=== PATIENT | male | born 1965 | race Caucasian/White ===

== ENCOUNTER 2023-08-13 19:04 | Emergency (ER) | payer MEDICAID, SELFPAY ==
[2023-08-13] VITALS (11 sets, daily range): BP systolic 138–154; BP diastolic 83–95; PULSE 77–85; RESP 16; TEMP 36.7; O2SAT 95–98; BMI 25.8
--- NOTE | 2023-08-13 20:58 | ED.ABDPAIN ---
HPI - Abdominal Pain General Time Seen by Provider: 20:58 Date Seen: 08/13/23 Chief Complaint: Abdominal Pain Stated Complaint: Severe Vomiting-recent kidney pain-weight loss Time Seen by Provider: 08/13/23 20:57 Source: patient Mode of arrival: ambulatory Limitations: no limitations History of Present Illness HPI narrative: 58-year-old male who comes in today with vomiting and epigastric pain. This is been going on for about 6 weeks. Patient has daily vomiting and difficulty eating due to nausea. He called the clinic to schedule an appointment to be seen and they told him he needed to be seen in the emergency department. He denies chest pain or shortness of breath. No blood in the emesis, no blood in the stools. He is not constipated. He does take Flomax for BPH, also history of kidney stones for which he was recently seen. He notes about a 20 lb weight loss during this time mostly because he is not able to eat full meals. He was recently seen at an outside facility for evaluation of flank pain kidney stones, reportedly as CT scan there but does not know the results. Also admits to recent urinary tract infection, says he took antibiotics and feels better. Related Data Home Medications Medication Instructions Recorded Confirmed omeprazole 20 mg capsule,delayed 20 mg PO DAILY 08/13/23 08/13/23 release tamsulosin 0.4 mg capsule 0.4 mg PO DAILY 08/13/23 08/13/23 Allergies Allergy/AdvReac Type Severity Reaction Status Date / Time No Known Drug Allergies Allergy Verified 08/13/23 19:36 PFSH PFS Social History Smoking Status: Unknown if ever smoked Exam Narrative: Exam Narrative: General: Well-developed and well-nourished, no acute distress Head: Atraumatic and normocephalic Eyes: Pupils are equal reactive, extraocular motions intact, conjunctiva clear ENT: External nose and ears are normal, posterior pharynx without erythema or exudate Neck: No midline cervical tenderness, full spontaneous range of motion the neck, trachea midline, no adenopathy Heart: Regular rate and rhythm no murmurs or thrills Lungs: Clear to auscultation bilaterally without wheezes or crackles Abdomen: Soft, epigastric tenderness, nondistended with active bowel sounds Musculoskeletal: No tenderness, deformity, or edema Neurologic: Awake, alert, and oriented x3, no gross focal neurologic deficits, cranial nerves intact as tested Psych: Mood and affect are appropriate Skin: No rashes Const: Vital Signs, click to edit/add: Vital Signs - 24 hr 08/13/23 19:38 08/13/23 22:15 08/13/23 22:30 Temperature 98.1 F Pulse Rate 78 77 Pulse Rate [Pulse Oximeter] 80 Respiratory Rate 16 Blood Pressure Blood Pressure [Ri ght Upper Arm] 154/83 H Pulse Oximetry 98 98 97 Oxygen Delivery Me thod Room Air Room Air 08/13/23 22:32 08/13/23 22:45 08/13/23 23:00 Temperature Pulse Rate 78 85 82 Pulse Rate [Pulse Oximeter] Respiratory Rate Blood Pressure 144/95 H Blood Pressure [Ri ght Upper Arm] Pulse Oximetry 97 96 97 Oxygen Delivery Me thod Room Air Course Course ED Course: Patient seen and examined, prior records are reviewed. Patient seen today for over a month epigastric pain, nausea, vomiting. He reports acidic taste in his mouth. He denies any blood in the vomit and no black or bloody stools. He is on omeprazole which is not been helping his symptoms recently. He denies chest pain or shortness of breath, no exercise intolerance. He does have weight loss which is likely due to poor oral intake but also could be concern for malignancy although he denies night sweats or other constitutional symptoms to suggest malignancy. Labs are ordered along with CT scan chest abdomen pelvis to evaluate for malignancy, obstruction, or other etiology for patient's ongoing nausea vomiting. Distant history of smoking, denies alcohol use. Reevaluation(s) Time of Reevaluation #1: 22:18 Reevaluation #1: Labs ordered and independently interpreted by me with normal urinalysis, normal CBC. Chest CT independently interpreted by me demonstrates distended, fluid-filled esophagus without acute abdominal findings. Will discuss the GI, patient likely needs upper GI scope with esophageal dilation. Will discuss with gastroenterology. Time of Reevaluation #2: 00:22 Reevaluation #2: Care discussed with Dr. Alaniz of Gastroenterology. Clinical call to schedule an appointment in the next couple days. Liquid diet until he gets his follow-up. Vital Signs Vital signs: Initial Vital Signs Temperature 98.1 F 08/13/23 19:38 Temperature Source Temporal Artery Scan 08/13/23 19:38 Pulse Rate 80 08/13/23 19:38 Respiratory Rate 16 08/13/23 19:38 Blood Pressure 154/83 H 08/13/23 19:38 Blood Pressure Mean 106 H 08/13/23 19:38 Blood Pressure Position Sitting 08/13/23 19:38 Pulse Oximetry 98 08/13/23 19:38 Oxygen Delivery Method Room Air 08/13/23 19:38 Vital Signs Temperature 98.1 F 08/13/23 19:38 Pulse Rate 80 08/13/23 19:38 Respiratory Rate 16 08/13/23 19:38 Blood Pressure 154/83 H 08/13/23 19:38 Pulse Oximetry 98 08/13/23 19:38 Oxygen Delivery Method Room Air 08/13/23 19:38 Temperature 98.1 F 08/13/23 19:38 Pulse Rate 82 08/13/23 23:00 Respiratory Rate 16 08/13/23 19:38 Blood Pressure 144/95 H 08/13/23 22:32 Pulse Oximetry 97 08/13/23 23:00 Oxygen Delivery Method Room Air 08/13/23 22:32 Medications Administered Medications: Generic Name Dose Route Start Last Admin Trade Name Freq PRN Reason Stop Dose Admin Famotidine 20 mg 08/13/23 21:35 08/13/23 21:55 Famotidine 10 Mg/Ml Inj IVP 08/13/23 21:36 20 mg ONCE ONE Administration Ondansetron HCl 4 mg 08/13/23 21:35 08/13/23 21:55 Ondansetron 2 Mg/Ml Inj IVP 08/13/23 21:36 4 mg ONCE ONE Administration MDM - Abdominal Pain Lab Data Labs: Lab Results 08/13/23 08/13/23 Range/Units 21:40 21:55 WBC 6.13 (4.50-11.00) K/uL RBC 5.65 (4.30-5.90) m/uL Hgb 16.2 (13.5-17.5) gm/dL Hct 48.6 (37.0-53.0) % MCV 86 (80-100) fL MCH 29 (26-34) pg MCHC 33 (32-36) gm/dL RDW Coeff of Kathya 13.2 (11.5-15.5) % Plt Count 251 (140-440) K/uL Neut % (Auto) 52.2 (42.0-72.0) % Lymph % (Auto) 31.0 (20-44) % Mathews % (Auto) 10.9 (0.0-11.0) % Eos % (Auto) 5.1 (0.0-7.0) % Baso % (Auto) 0.8 (0.0-3.0) % Neut # (Auto) 3.20 (1.7-7.0) K/uL Lymph # (Auto) 1.90 (0.90-2.90) K/uL Mathews # (Auto) 0.70 (0.00-0.90) K/UL Eos # (Auto) 0.31 (0.00-0.50) K/uL Baso # (Auto) 0.05 (0.00-0.30) K/uL Abs Immat Gran (auto) 0.00 (0.00-0.30) K/uL Imm/Tot Granulo (auto) 0.0 % Sodium 137 (135-149) mmol/L Potassium 3.7 (3.6-5.1) mmol/L Chloride 101 (96-114) mmol/L Carbon Dioxide 26 (20-32) mmol/L Anion Gap 10 (7-15) mEq/L BUN 10 (7-30) mg/dL Creatinine 0.6 (0.5-1.5) mg/dL Estimated Creat Clear 140.25 Estimated GFR 113 ml/min Glucose 89 (60-115) mg/dL Calcium 9.0 (8.4-10.6) mg/dL Magnesium 2.1 (1.5-2.6) mg/dL Total Bilirubin 0.8 (0.1-1.5) mg/dL Direct Bilirubin 0.0 (0.0-0.5) mg/dL AST 26 (12-35) U/L ALT 23 (4-50) U/L Alkaline Phosphatase 88 (40-150) U/L Total Protein 7.7 (6.0-8.3) g/dL Albumin 4.4 (3.3-5.0) g/dL Lipase 18 L (23-300) U/L Urine Color [place] A (Yellow) Urine Appearance Clear (Clear) Urine pH 5.5 (5.0-8.5) Ur Specific [place] 1.025 (1.000-1.030) Urine Protein Negative (Negative) Urine Glucose (UA) Negative (Negative) Urine Ketones Negative (Negative) Urine Blood Negative (Negative) Urine Nitrite Negative (Negative) Urine Bilirubin Negative (Negative) Urine Urobilinogen 4.0 A (0.2-1.0) Ur Leukocyte Esterase Negative (Negative) Urine RBC 0-2 (0-2) Urine WBC 0-2 (0-5) Ur Squamous Epith Cells None (None-Few) Urine Bacteria None (None) Discharge Plan Discharge Clinical Impression: Achalasia Patient Disposition: Home, Self-Care Condition: Stable Instructions: Upper Endoscopy (DC) Additional Instructions: You have a condition called achalasia. This happens when the muscles the lower esophagus (swallowing tube) do not relax enough to allow food to pass into the stomach. This can be related to chronic inflammation or scarring from reflux. [facility] ([facility]) will call you to schedule follow-up appointment. If you do not hear from them call [phone] extension [phone] Alaniz's clinic nurse Activity Level: No Restrictions Discharge Diet: Full Liquid Prescriptions: No Action tamsulosin 0.4 mg capsule 0.4 mg PO DAILY omeprazole 20 mg capsule,delayed release(DR/EC) 20 mg PO DAILY Follow Up/Referrals: Provider,Not a Local [Primary Care Provider] - Stand Alone Forms: [employer] Info Instructions
--- NOTE | 2023-08-13 21:33 | CRLHL7_ITS ---
For Patients: As a result of the Century Cures Act, medical imaging exams and procedure reports are released immediately into your electronic medical record. You may view this report before your referring provider. If you have questions, please contact your health care provider. INDICATION: Nausea/vomiting, weight loss, history of smoking. TECHNIQUE: CT chest, abdomen, and pelvis acquired with 89 mL Isovue 370 IV contrast. COMPARISON: CT abdomen/pelvis dated 07/17/2023. FINDINGS: CHEST: Lungs and pleura: No focal consolidation. No suspicious pulmonary mass. Heart and vasculature: No cardiomegaly, no pericardial effusion. Thyroid and lower neck: No suspicious thyroid nodule. Mediastinum/binta: No lymphadenopathy. Patulous dilated esophagus, with circumferential wall thickening, and extensive enteric material. No definite obstructing mass is identified at the gastroesophageal junction. Chest wall: No axillary lymphadenopathy. ABDOMEN/PELVIS: Liver: No suspicious focal hepatic lesion. Gallbladder and bile ducts: Unremarkable. Pancreas: Unremarkable. Spleen: Unremarkable. Adrenal glands: Unremarkable. Kidneys: Kidneys enhance symmetrically, without hydronephrosis. Scattered punctate nonobstructing bilateral renal calculi. Retroperitoneum: No lymphadenopathy. Bowel and mesentery: Bowel is not obstructed. No significant ascites. No pneumoperitoneum. Stable prominent appearance of the appendix with appendicolith noted, no secondary signs of acute appendicitis. Bladder: Stable circumferential bladder wall thickening, which may be secondary to chronic bladder outlet obstruction. Reproductive organs: Not well visualized secondary to streak artifact. Pelvic lymph nodes: No lymphadenopathy. Vessels: Unremarkable. Abdominal wall: Large left inguinal hernia contains loop of sigmoid colon, without evidence of bowel obstruction. Bones: Extensive multilevel degenerative changes of the spine. No suspicious/aggressive focal osseous lesion. Right hip arthroplasty. IMPRESSION: 1. Significantly dilated patulous esophagus, with extensive enteric material. No definite obstructing mass is identified at the gastroesophageal junction. This raises possibility of achalasia. 2. Diffuse circumferential wall thickening of the distal esophagus, likely secondary to esophagitis. 3. Additional incidental findings as above. Please note that all CT scans at this facility use dose modulation, iterative reconstruction, and/or weight-based dosing when appropriate to reduce radiation dose to as low as reasonably achievable. Dictated by Steven Stoner MD @ 08/13/2023 11:36:02 PM (Electronically Signed)
[2023-08-13 21:50] LABS: Bilirubin Urine Negative (Negative); Blood Urine Negative (Negative); Color Urine Amber (Yellow); Glucose Urine Negative (Negative); Ketones Urine Negative (Negative); Leukocyte Esterase Urine Negative (Negative); Nitrite Urine Negative (Negative); Protein Urine Negative (Negative); Specific Gravity Urine 1.025 (1.000-1.030); pH Urine 5.5 (5.0-8.5)
[2023-08-13] MEDS: ONDANSETRON 2 MG/ML inj 4 MG IVP (21:55)
[2023-08-13] MEDS: FAMOTIDINE 10 MG/ML inj 20 MG IVP (21:55)
[2023-08-13 22:02] LABS: Appearance Urine Clear (Clear)
[2023-08-13 22:05] LABS: Basophils Absolute Auto 0.05 K/uL (0.00-0.30); Basophils Percent Auto 0.8 % (0.0-3.0); Eosinophils Absolute Auto 0.31 K/uL (0.00-0.50); Eosinophils Percent Auto 5.1 % (0.0-7.0); Hematocrit 48.6 % (37.0-53.0); Hemoglobin* 16.2 gm/dL (13.5-17.5); Mean Corpuscular HGB Conc 33 gm/dL (32-36); Mean Corpuscular Hemoglobin 29 pg (26-34); Mean Corpuscular Volume 86 fL (80-100); Monocytes Percent Auto 10.9 % (0.0-11.0); Neutrophils Percent Auto 52.2 % (42.0-72.0); Platelet Count* 251 K/uL (140-440); RDW Coefficient of Variation % 13.2 % (11.5-15.5); Red Blood Count 5.65 m/uL (4.30-5.90); White Blood Count* 6.13 K/uL (4.50-11.00)
[2023-08-13 22:13] LABS: Slide Review Reflex No
[2023-08-13 22:24] LABS: RBC Urine 0-2 (0-2); WBC Urine 0-2 (0-5)
[2023-08-13 22:28] LABS: Albumin* 4.4 g/dL (3.3-5.0); Chloride* 101 mmol/L (96-114)
[2023-08-13 22:29] LABS: Potassium* 3.7 mmol/L (3.6-5.1); Sodium* 137 mmol/L (135-149)
[2023-08-13 22:31] LABS: Alkaline Phosphatase* 88 U/L (40-150); Anion Gap 10 mEq/L (7-15); Aspartate Amino Transferase* 26 U/L (12-35); Bilirubin Total* 0.8 mg/dL (0.1-1.5); Blood Urea Nitrogen* 10 mg/dL (7-30); Carbon Dioxide* 26 mmol/L (20-32); Creatinine* 0.6 mg/dL (0.5-1.5); Est. Creatinine Clearance* 140.25; Estimated Glomerular Filt Rate 113 ml/min; Glucose* 89 mg/dL (60-115); Lipase* 18 U/L (23-300); Total Protein* 7.7 g/dL (6.0-8.3)
[2023-08-13 22:32] LABS: Alanine Aminotransferase* 23 U/L (4-50); Magnesium* 2.1 mg/dL (1.5-2.6)
[2023-08-14] VITALS: PULSE 82; O2SAT 97
[2023-08-14 00:02] VITALS: BP 136/89; PULSE 78; O2SAT 96
[2023-08-14 00:15] VITALS: PULSE 78; O2SAT 96
[2023-08-14 00:30] VITALS: PULSE 83; O2SAT 96
== END 2023-08-14 00:36 | disposition home or self-care (01) ==
PROVIDERS: Emergency Provider Family Medicine
DX: K22.0 Achalasia of cardia (principal)
CPT/HCPCS: 36415; 71260; 74177; 80048; 80076; 81001; 83690; 83735; 85025; 95992; 96374; 96375; 99284; 99285; J2405; Q9967; S0028

== ENCOUNTER 2024-11-16 05:56 | Day surgery (SDC) | payer MEDICAID, SELFPAY ==
[2024-11-16] VITALS (14 sets, daily range): BP systolic 118–138; BP diastolic 76–89; PULSE 72–86; RESP 14–18; TEMP 36.3–36.6; O2SAT 92–97; BMI 31.0
[2024-11-16] MEDS: LACTATED RINGERS 1000 ML 1,000 ML 100 ML IV (06:05)
[2024-11-16] MEDS: SODIUM CHLORIDE 0.9 % (FLUSH) 10 ML SYRINGE IVF (06:27)
--- NOTE | 2024-11-16 07:13 | W.PM.H&PU ---
History & Physical Update History & Physical Update H&P Reviewed and patient assessed: No changes noted
--- NOTE | 2024-11-16 07:15 | P.GSOP_ITS ---
Operative Note Date of procedure: 11/16/24 Pre-op diagnosis: 1. Symptomatic large left inguinal hernia. Post-op diagnosis: 1. Incarcerated left inguinal hernia. Type of Procedure: 1. Open left inguinal hernia repair with mesh. Indications: 59-year-old male was seen in clinic for evaluation of a left inguinal hernia. Patient was initially diagnosed several years ago but did not have pain associated the hernia. Most recently he noticed the hernia bulge has increased in size and was in his left scrotum. He also noticed pain at the bulge. The pain was usually present with coughing and was described as sharp. Patient was having trouble having bowel movements and needed to sit on the toilet for 30 minutes to try to have a bowel movement. Patient had an abdominal CT June of 2023 that showed a left inguinal hernia that was large and contained sigmoid colon. On clinical exam patient had a large left inguinal bulge occupying left rita scrotum. With the patient lying down, I was only able to partially reduce the hernia. Patient had no symptoms of obstruction. Given patient's clinical history and his physical exam, an open left inguinal hernia repair was recommended. The procedure was discussed in detail. The risks associated procedure including infection, bleeding, nerve pain, seroma, and possible hernia recurrence were all discussed with the patient, and he agreed to proceed. Procedure Description: After discussing the risks and benefits of the procedure, the patient signed informed consent.? The operative site was marked and the patient was brought to the operating room and placed on the operating table in supine position.? Care was taken to pad the patient's pressure points.?? The patient was then intubated intubated by anesthesia.?? The operative site was then prepped and draped in the usual sterile fashion.? A time-out was then performed. Surgical site was prepped and draped in sterile fashion. Two tiny pustules were seen on the skin just superior to the area of proposed surgical incision. These were covered by Tegaderm for the entire case. Site of the incision was marked with a marking pen and local anesthetic was injected. An oblique incision was made just above and medial to the left inguinal ligament. Subcutaneous tissue was dissected to external obliques. Superficial subcutaneous vascular branches were clamped, divided and tied with 3-0 Vicryl ties. Small incision was made through the external oblique aponeurosis with scalpel. I then used Metzenbaum scissors to dissect under external obliques and extend my incision. Mosquito clamps were placed on the edges of external oblique exposing the inguinal floor. The left Ilioinguinal nerve was identified and was going through the plain of dissection. The nerve was divided. I then proceeded with dissecting the hernia sac from the scrotum. This was tedious and dissection was done bluntly and with cautery. I bluntly dissected subcutaneous tissues in order to place [place] drain around the cord structures. Cremasteric fibers were peeled off and dissected off the hernia sac and cord structures. Was finally able to reduce the hernia into the abdomen and that made it easier to see the hernia sac in the cord structures. There appeared to be a large indirect hernia sac and a small direct hernia defect with preperitoneal fat protruding through the direct defect. The indirect hernia sac was from the spermatic cord bluntly and with cautery. The indirect hernia sac was incised and examined from the inside. No intraabdominal organs were incarcerated in the hernia sac. At the base of the hernia sac intra-abdominal fat was seen adherent to the wall of the hernia sac. These adhesions were taken down with hook cautery with care taken not to injure intra-abdominal organs. A stitch using 2-0 Vicryl was placed near the base of the hernia sac through the sac and the hernia sac tied off. Hernia sac was then excised and not sent to pathology. The cut edge of the hernia sac was then oversewn with a locking Vicryl suture. This was then pushed into preperitoneal space through the internal ring. Surgical field was examined for bleeding and hemostasis was achieved with cautery and Vicryl ties. A large Bard mesh plug was inserted through the internal ring and secured to the adjacent tissues with interrupted 0-0 Neurolon sutures. A Bard mesh onlay was also used for hernia repair. The mesh onlay was sutured in place with interrupted 0-0 Neurolon sutures to the conjoint tendon medially and shelving edge laterally, pubic tubercle inferiorly. Simple interrupted sutures were placed using 0-0 Neurolon at the base of internal inguinal ring making it only large enough to fit a tip of one finger through. Spermatic cord was placed back into scrotum. [place] drain was removed. External oblique aponeurosis was closed with a running 3-0 Vicryl. Additional local anesthetic was injected into subcutaneous tissues. Christie's fascia and subcutaneous tissue was re- approximated with interrupted Vicryl stitches. Skin incision was closed with 4-0 Monocryl subcuticular stitch. Steri strips and sterile dressing were applied over incision. The Tegaderm covering small skin pustules was left in place. All counts were correct at the end of the case. Patient tolerated this procedure well and was transferred to PACU in stable condition. Findings: Large indirect hernia sac that was incarcerated and reduced intraoperatively. And a small direct hernia defect. Implants: Bard mesh plug and onlay Anesthesia: FANI Surgeon: Sharla Allan MD Estimated blood loss (mL): 10 Condition: stable Disposition: PACU
[2024-11-16] MEDS: CEFAZOLIN 2 GM INJ IVP (07:38)
--- NOTE | 2024-11-16 09:18 | P.ANES_ITS ---
Anesthesia Charges Start Date/Time Anesthesia Start Date: 11/16/24 Anesthesia Start Time: 07:28 Stop Date/Time Anesthesia Stop Date: 11/16/24 Anesthesia Stop Time: 09:44 Coding CPT Codes CPT Codes: ANESTH REPAIR OF HERNIA - 91406 ([id number]) P2 - PATIENT W/MILD SYST DISEASE, QK - PLANT AND INSTRUMENT ENGINEER 2-4 CNCRNT ANES PROC, QX - PLANER FEEDER SVC W/ MD MED DIRECTION
--- NOTE | 2024-11-16 09:18 | W.ANESCHARGE ---
Anesthesia Charges Start Date/Time Anesthesia Start Date: 11/16/24 Anesthesia Start Time: 07:28 Stop Date/Time Anesthesia Stop Date: 11/16/24 Anesthesia Stop Time: 09:44 Coding CPT Codes CPT Codes: ANESTH REPAIR OF HERNIA - 83501 ([id number]) P2 - PATIENT W/MILD SYST DISEASE, QK - GRAVEL ROOFER 2-4 CNCRNT ANES PROC, QX - ROOFING TECHNICIAN SVC W/ MD MED DIRECTION
[2024-11-16] MEDS: LIDOCAINE 1%-EPI 1:100,000 20 ML INFILTRATI (09:20)
[2024-11-16] MEDS: BUPIVACAINE 0.25% 30 ML INJECTION (09:20)
[2024-11-16] MEDS: hydrOXYzine pamoate 25 MG CAPSULE PO (09:27)
--- NOTE | 2024-11-16 09:41 | P.ANES_ITS ---
Anesthesia Charges Start Date/Time Anesthesia Start Date: 11/16/24 Anesthesia Start Time: 07:28 Stop Date/Time Anesthesia Stop Date: 11/16/24 Anesthesia Stop Time: 09:44 Coding CPT Codes CPT Codes: ANESTH REPAIR OF HERNIA - 47662 ([id number]) P2 - PATIENT W/MILD SYST DISEASE, QK - NASCAR PIT CREW PERSON 2-4 CNCRNT ANES PROC, QX - TRUCK MECHANIC SVC W/ MD MED DIRECTION
--- NOTE | 2024-11-16 09:41 | W.ANESCHARGE ---
Anesthesia Charges Start Date/Time Anesthesia Start Date: 11/16/24 Anesthesia Start Time: 07:28 Stop Date/Time Anesthesia Stop Date: 11/16/24 Anesthesia Stop Time: 09:44 Coding CPT Codes CPT Codes: ANESTH REPAIR OF HERNIA - 09964 ([id number]) P2 - PATIENT W/MILD SYST DISEASE, QK - DIGITAL IMAGING TECHNICIAN 2-4 CNCRNT ANES PROC, QX - METAL FABRICATION SUPERVISOR SVC W/ MD MED DIRECTION
[2024-11-16] MEDS: HYDROCODONE-ACETAMIN 5-325 MG 1 TAB PO (10:23)
[2024-11-16] MEDS: fentaNYL 100 MCG/2 ML inj 50 MCG IVP ×2 (10:40→10:46)
== END 2024-11-16 11:55 | disposition home or self-care (01) ==
PROVIDERS: PCP Physician Assistant; Visit Provider Surgery
PROC: (CPT 49507; principal; 2024-11-16 07:30)
DX: K40.30 Unilateral inguinal hernia, with obstruction, without gangrene, not specified as recurrent (principal)
CPT/HCPCS: 49507; 00830; A9270; C1781; J0665; J0690; J1100; J2250; J2405; J2704; J3010; J3490; J7120

== ENCOUNTER 2024-11-17 23:04 | Inpatient (IN) | payer MEDICAID, SELFPAY ==
--- OUTSIDE RECORDS SUMMARY | 2024-11-17 23:06 | XMS_ITS | Clinical Summary ---
Author Organization [facility] Address [address] [place] [id number] Care Team Providers Care Client Hr Manager Name Role Phone Rachel Kenney Primary Care Provider [phone] Allergies No known active allergies Medications acetaminophen (Tylenol Extra Strength) 500 mg tablet Take 500-1,000 mg by mouth every 6 hours if needed. Max acetaminophen dose: 4000mg in 24 hrs. Active polyethylene glycoL (MIRALAX) 17 gram/scoop powderIndications :Achalasia Mix 17 g using cap provided into 8oz beverage then take by mouth daily 238 g 4 10:52 AM CDT 02/01/20 24 Active lisinopriL 10 mg tabletIndications :Primary hypertension Take 1 Tablet (10 mg) by mouth once daily. 90 Tablet 3 11/14/19 25 Active omeprazole 40 mg Delayed-Release capsuleIndication s:Chronic GERD Take 1 Capsule (40 mg) by mouth once daily before a meal. 90 Capsule 3 11/14/19 25 Active tamsulosin 0.4 mg capsuleIndication s:Benign prostatic hyperplasia, unspecified whether lower urinary tract symptoms present Take 1 Capsule (0.4 mg) by mouth once daily after a meal. 90 Capsule 3 11/14/19 25 Active omeprazole (PRILOSEC) 40 mg Delayed-Release capsuleIndication s:Chronic GERD Take 1 Capsule (40 mg) by mouth once daily before a meal. 90 Capsule 3 08/29/19 24 025 Discontin ued(Reord er (E-cancel not sent)) nitroglycerin (NITROSTAT) 0.4 mg sublingual tabletIndications :Achalasia Take 1 tablet 10-15 mins before a meal up to 2 times a day. 25 Tablet 1 08/29/19 24 025 Discontin ued(*Med complete/ Regimen complete/ Level of care change) HYDROcodone-aceta minophen (5-325 mg/tablet)Indicat ions:Rib pain on left side Take 1 Tablet by mouth 2 times daily if needed for Pain. Max acetaminophen dose: 4000 mg in 24 hrs. 15 Tablet 12/06/19 24 025 Discontin ued(*Med complete/ Regimen complete/ Level of care change) lisinopriL (PRINIVIL; ZESTRIL) 10 mg tabletIndications :Primary hypertension Take 1 Tablet (10 mg) by mouth once daily. 90 Tablet 3 12/10/19 24 025 Discontin ued(Reord er (E-cancel not sent)) tamsulosin (FLOMAX) 0.4 mg capsuleIndication s:Benign prostatic hyperplasia, unspecified whether lower urinary tract symptoms present Take 1 Capsule (0.4 mg) by mouth once daily after a meal. 90 Capsule 3 12/10/19 24 025 Discontin ued(Reord er (E-cancel not sent)) oxyCODONE (ROXICODONE) 5 mg/5 mL solutionIndicatio ns:Achalasia Take 5-10 mL (5-10 mg) by mouth every 4 hours if needed for Pain (For moderate pain). 120 mL 4 10:52 AM CDT 01/31/20 24 025 Discontin ued(*Med complete/ Regimen complete/ Level of care change) ondansetron (ZOFRAN ODT) 4 mg disintegrating tabletIndications :Achalasia Place 1 Tablet (4 mg) on the tongue every 8 hours if needed for Nausea/Vomiting. 24 Tablet 4 10:52 AM CDT 01/31/20 24 025 Discontin ued(*Med complete/ Regimen complete/ Level of care change) triamcinolone 0.1 % ointmentIndicatio ns:Allergic contact dermatitis due to other agents Apply topically to affected area(s) two times daily. 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 Pain medication agreement 09/19/2011 Encounters Date Type Department Care Team Description 11/16/2024 7:00 AM CDT Office Visit [facility] at [facility] [address] [place] [address] Sharla Allan MD Surgery Scheduled 11/16/2024 Orders Only [facility] Scanner 1 scan: (1-Ord) CRESSON, OPEN LEFT INGUINAL HERNIA REPAIR WITH MESH, 11/16/2024 11/13/2024 10:30 AM CDT Office Visit [facility] [address] [place] [address] Rachel Kenney PA Preoperative Exam (Dr. Allan, [facility], 11/16/24, left inguinal hernia repair) 11/13/2024 Travel 11/09/2024 3:00 PM CDT Office Visit [facility] [address] [place] [address] Sharla Allan MD Consult (Left inguinal hernia) 11/09/2024 Travel 11/04/2024 2:20 PM CDT Office Visit [facility] [address] [place] [address] Jo Ann Roberts MD Referral (To get hernia repair surgery Left inguinal hernia ) 11/04/2024 Travel from Last 3 Months Immunizations Immunization Administration Dates Next Due COVID-19 vaccine ([employer] 30mcg/0.3mL) P F, MDV 06/08/2021,05/18/2021 DTaP 08/19/2009 Influenza Virus, Unspecified 08/17/2003 Tdap 12/31/2022,08/19/2009 Family History Medical History Relation Name Comments Coronary artery disease Brother 1 Coronary artery disease Brother 2 Good Health Brother 3 Coronary artery disease Father Diabetes Mother Stroke Mother Relation Name Status Comments Brother 1 Brother 2 Alive Brother 3 Alive Brother 4 Alive Brother 5 Brother 6 Father (Age 68) ?[place], hx of 4 V CABG Mother (Age 93) Old age Sister 1 Alive Sister 2 Alive Sister 3 Alive Sister 4 Social History Tobacco Use Types Packs/Day Years Used Date Smoking Tobacco: Former Cigarettes Q uit: 2016 Passive Smoke Exposure: Past Smokeless Tobacco: Former Quit: 02/29/2012 Tobacco Cessation:Counseling Given: Yes Passive Exposure Comments:mom was a closet smoker in child adkins life Alcohol Use Standard Drinks/Week Comments Not Currently 0 (1 standard drink = 0.6 oz pur e alcohol) PHQ-2 Answer Date Recorded PHQ-2 TOTAL SCORE 0 02/07/2024 Social Connections Answer Date Recorded Do you often feel lonely or isolated from those around you? 0 02/18/2024 Financial Resource Strain Answer Date R ecorded Difficulty of Paying Living Expenses 2 01/27/2024 Difficulty of Paying Living Expenses 1 01/27/2024 Food Insecurity Answer Date Recorded Do you worry your food will run out before you are able to buy more? 2 02/18/2024 Transportation Needs Answer Date Record ed Does lack of transportation keep you from medica l appointments? 1 02/18/2024 Does lack of transportation keep you from work, meetings or getting things that you need? 1 02/18/2024 Housing Stability Answer Date Recorded What is your housing situation today? 3 02/18/2024 Utilities Answer Date Recorded Do you have trouble paying f or utilities (for example, heat, electricity, water, phone)? 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 Gender Identity Not on file Sexual Orientation Not on file Obstetrics History Last Filed Vital Signs Vital Sign Reading Time Taken Comments Blood Pressure 128/81 11/13/2024 10:18 AM CDT Pulse 86 11/13/2024 10:18 AM CDT Temperature 36.6 C (97.9 F) 02/01/2024 8:48 AM CDT Respiratory Rate 16 02/01/2024 8:48 AM CDT Oxygen Saturation 94% 11/13/2024 10:18 AM CDT Inhaled Oxygen Concentration - - Weight 92.5 kg (204 lb) 11/13/2024 10:18 AM CDT Height 174 cm (5' 8.5) 11/13/2024 10:18 AM CDT Body Mass Index 30.56 11/13/2024 10:18 AM CDT Plan of Treatment Upcoming Encounters Date Type Department Care Team (Late st Contact Info) Description 11/30/2024 2:00 PM CDT Office Visit [facility] [address] [place] [address] Sharla Allan MD [address] [place] [address] Health Maintenance Due Date Last Done Comments HIV for age 15-65 1981 Hepatitis C screening for ag e 18-79 01/22/1984 Pneumococcal series for age 50+ (1 of 1 - PCV) 01/22/2016 Zoster (shingles) series for age 50+ (1 of 2) 01/22/2016 COVID-19 vaccine series ( season) 2024 06/08/2021, 05/18/2021 Influenza Vaccine (#1) 2024 08/17/2003 Depression screening for age 12+ 02/06/2025 02/07/2024, 02/03/2024, 01/14/2023, Additional history exists BMI (ht and wt on same day) for age 18+ 11/13/2025 11/13/2024, 02/12/2024, 12/16/2023, Additional history exists Colonoscopy through age 75 04/24/2028 04/24/2018 Lipids for age 45-75 11/13/2029 11/13/2024, 12/06/2023, 09/21/2019, Additional history exists Tetanus booster 12/31/2032 12/31/2022, 07/27 (Completed outside of [facility]), 08/19/2009 Tdap Completed 12/31/2022, 08/19/2009 Medical Devices Implanted Type Area Awning Craftsperson Device Identifier Shelf Expiration Date Model / Serial / Lot Mesh Ventral 1.7in Ventralex St W/Strap - [id number] Implanted:Qty: 1 on 07/05/2020 by Yogesh Noel MD at [facility] [employer] 01/20/2022 [id number] / / [id number] Procedures Procedure Name Priority Date/Time Associated Diagnosis Comments SCAN-OPERATIVE/PROCE DURE REPORT 11/16/2024 12:00 AM CDT COMP METABOLIC PANEL Routine 11/13/2024 11:18 AM CDT Diabetes mellitus screening LIPID PANEL W REFLEX MEASURED LDL Routine 11/13/2024 11:18 AM CDT Screening cholesterol level HEMOGLOBIN A1C Routine 11/13/2024 11:18 AM CDT Diabetes mellitus screening PSA TOTAL Routine 11/13/2024 11:18 AM CDT Screening for malignant neoplasm of prostate COLONOSCOPY 04/24/2018 10:50 AM CDT from Last 3 Months or Most Recently Relevant to Health Maintenance Results * SCAN-OPERATIVE/PROCEDURE REPORT (11/16/2024 12:00 AM CDT) us Scanner OTHER Final Result * (ABNORMAL) HEMOGLOBIN A1C (11/13/2024 11:18 AM CDT) HEMOGLOBIN A1C 6.0(H) <5.7 % of total Hgb [facility] Comment: For someone without known diabetes, a hemoglobin A1c value between 5.7% and 6.4% is consistent with prediabetes and should be confirmed with a follow-up test. For someone with known diabetes, a value <7% indicates that their diabetes is well controlled. A1c targets should be individualized based on duration of diabetes, age, comorbid conditions, and other considerations. This assay result is consistent with an increased risk of diabetes. Currently, no consensus exists regarding use of hemoglobin A1c for diagnosis of diabetes for children. Blood BLOOD SPECIMEN / Unknown 11/13/2024 11:18 AM CDT 11/13/2024 11:20 AM CDT Narrative [facility] - 11/14/2024 3:56 AM CDT FASTING:NO FASTING: NO Rachel RIOS CHEMISTRY Final Resu lt [employer] [facility] [address] [place] [address], [facility] [address] [place] [address] * (ABNORMAL) LIPID PANEL W REFLEX MEASURED LDL (11/13/2024 11:18 AM CDT) [facility] CHOLESTEROL, TOTAL 176 <200 mg/dL [facility] HDL CHOLESTEROL 53 > OR = 40 mg/dL [facility] TRIGLYCERIDES 239(H) <150 mg/dL [facility] Comment: If a non-fasting specimen was collected, consider repeat triglyceride testing on a fasting specimen if clinically indicated. Juan Luis et al. J. of Clin. Lipidol. 2015;9:129-169. LDL-CHOLESTEROL 90 mg/dL (calc) [facility] Comment: Reference range: <100 Desirable range <100 mg/dL for primary prevention; <70 mg/dL for patients with CHD or diabetic patients with > or = 2 CHD risk factors. LDL-C is now calculated using the Uzair calculation, which is a validated novel method providing better accuracy than the Friedewald equation in the estimation of LDL-C. Celestine MATA et al. KETTY. 2013;310(19): 4885-1257 (http://education.Saharey/faq/YAY627) CHOL/HDLC RATIO 3.3 <5.0 (calc) [employer] [facility] NON HDL CHOLESTEROL 123 <130 mg/dL (calc) [employer] [facility] Comment: For patients with diabetes plus 1 major ASCVD risk factor, treating to a non-HDL-C goal of <100 mg/dL (LDL-C of <70 mg/dL) is considered a therapeutic option. Blood BLOOD SPECIMEN / Unknown 11/13/2024 11:18 AM CDT 11/13/2024 11:20 AM CDT Narrative [facility] - 11/14/2024 3:17 AM CDT FASTING:NO FASTING: NO Rachel RIOS CHEMISTRY Final Resu lt [employer] [facility] [address] [place] [address], [facility] [address] [place] [phone] * PSA TOTAL (DIAG OR SCREEN) (11/13/2024 11:18 AM CDT) PSA, TOTAL 0.27 < OR = 4.00 ng/mL [facility] Comment: The total PSA value from this assay system is standardized against the WHO standard. The test result will be approximately 20% lower when compared to the equimolar-standardized total PSA (Nayeli Davy). Comparison of serial PSA results should be interpreted with this fact in mind. This test was performed using the Siemens chemiluminescent method. Values obtained from different assay methods cannot be used interchangeably. PSA levels, regardless of value, should not be interpreted as absolute evidence of the presence or absence of disease. Blood BLOOD SPECIMEN / Unknown 11/13/2024 11:18 AM CDT 11/13/2024 11:20 AM CDT Narrative [facility] - 11/14/2024 5:25 AM CDT FASTING:NO FASTING: NO us Rachel RIOS CHEMISTRY Final Resu lt [employer] [facility] [address] [place] [address], [facility] [address] [place] [address] * COMP METABOLIC PANEL (11/13/2024 11:18 AM CDT) Pathologist [facility] GLUCOSE 120 65 - 139 mg/dL [facility] Comment: Non-fasting reference interval UREA NITROGEN (BUN) 18 7 - 25 mg/dL [facility] CREATININE 0.76 0.70 - 1.30 mg/dL [facility] EGFR 104 > OR = 60 mL/min/1. 73m2 [facility] BUN/CREATININE RATIO SEE NOTE: 6 - 22 (calc) [facility] Comment: Not Reported: BUN and Creatinine are within reference range. SODIUM 136 135 - 146 mmol/L [facility] POTASSIUM 4.1 3.5 - 5.3 mmol/L [facility] CHLORIDE 104 98 - 110 mmol/L [facility] CARBON DIOXIDE 23 20 - 32 mmol/L [facility] CALCIUM 9.0 8.6 - 10.3 mg/dL [facility] PROTEIN, TOTAL 6.8 6.1 - 8.1 g/dL [facility] ALBUMIN 4.0 3.6 - 5.1 g/dL [facility] GLOBULIN 2.8 1.9 - 3.7 g/dL (calc) [facility] ALBUMIN/GLOBULIN RATIO 1.4 1.0 - 2.5 (calc) [facility] BILIRUBIN, TOTAL 0.4 0.2 - 1.2 mg/dL [facility] ALKALINE PHOSPHATASE 89 35 - 144 U/L [facility] AST 21 10 - 35 U/L [facility] ALT 24 9 - 46 U/L [facility] Blood BLOOD SPECIMEN / Unknown 11/13/2024 11:18 AM CDT 11/13/2024 11:20 AM CDT Narrative [facility] - 11/14/2024 3:17 AM CDT FASTING:NO FASTING: NO Rachel RIOS CHEMISTRY Final Resu lt [facility] [address] [place] [address], [facility] [address] [place] [address] * COLONOSCOPY (04/24/2018 10:50 AM CDT) 04/24/2018 10:5 0 AM CDT Narrative Transcriptions Yogesh Noel MD - 04/24/2018 11:39 AM CDT Patient Name: Tony Aparicio Procedure Date: 04/24/2018 Gender: Male Date of : 1965 Admit Type: Ambulatory Procedure: Colonoscopy Proceduralist: Yogesh Carrillo [facility] Indications/Pre-Op Diagnosis: Screening for colorectal malignantneoplasm Medications: Midazolam 5 mg IV, Fentanyl 100 microgramsIV Procedure Description: The patient had risks, benefits and alternatives explained to andgave informed consent. The patient had a stable cardiopulmonary status and judged an adequate candidate for conscious sedation. The colonoscope was passed through the anus and advanced to thececum, identified by appendiceal orifice and ileocecal valve. Thecolonoscopy was performed without difficulty. The patient tolerated the procedure well. The quality of the bowel preparation was adequate. Theileocecal valve, appendiceal orifice, and rectum were photographed. Complications: No immediate complications. Estimated Blood Loss & Specimen: Estimated blood loss: none. Specimen collected - None Findings: The perianal and digital rectal examinations were normal. The retroflexed view of the distal rectum and anal verge was normaland showed no anal or rectal abnormalities. The entire examined colon appeared normal. Impressions/Post-Op Diagnosis: - The entire examined colon is normal. - No specimens collected. Recommendation: - Discharge patient to home. - Resume previous diet. - Continue present medications. - Repeat colonoscopy in 10 years for surveillance. Moderate Sedation: Moderate (conscious) sedation was administered by the endoscopy nurse and supervised by the endoscopist. The following parameters were monitored: oxygen saturation, heart rate, respiratory rate, adequacyof pulmonary ventilation and reponse to care. Please refer to the patient's medical record flowsheets for moderate sedation details. please see sedation report above. Sedation was given under thedirection of the endoscopist. Moderate (conscious) sedation was administered by the endoscopy nurse and supervised by the endoscopist. The following parameters were monitored: oxygen saturation, heart rate, blood pressure, andresponse to care. Total physician intraservice time was 17 minutes. Yogesh Noel, 04/24/2018 11:39:18 AM This report has been signed electronically. Note Initiated On: 04/24/2018 10:50 AM Yogesh Noel MD PROCEDURE ORD Final Res ult from Last 3 Months or Most Recently Relevant to Health Maintenance Insurance [employer] [facility]ICE [facility] Advance Directives * Full Code (Latest Code Status on File) Date Activated Date Inactivated Comments 01/31/2024 6:41 AM 02/01/2024 4:41 PM Question Answer Comments Code Status Discussion: Unable to Assess Preferences, Provider to review later * Full Code Date Activated Date Inactivated Comments 12/19/2023 9:11 AM 12/20/2023 2:28 AM Question Answer Comments Code Status Discussion: Reviewed Preferences * Full Code Date Activated Date Inactivated Comments 08/16/2023 9:09 AM 08/16/2023 2:01 PM Question Answer Comments Code Status Discussion: Unable to Assess Preferences, Provider to review later * Full Code Date Activated Date Inactivated Comments 07/05/2020 6:57 AM 07/05/2020 1:07 PM Question Answer Comments Code Status Discussion: Not Discussed * Full Code Date Activated Date Inactivated Comments 04/24/2018 11:42 AM 04/24/2018 2:31 PM Question Answer Comments Code Status Discussion: Not Discussed Care Teams Client Hr Manager Relationship Specialty Start Date End Date Rachel Kenney PA [address] [facility] [place] [address] PCP - General Physician Underwriting Support Specialist 06/20/23
--- OUTSIDE RECORDS SUMMARY | 2024-11-17 23:06 | XMS_ITS | Clinical Summary ---
Author Organization [facility] Address [address] [place] [address] Care Team Providers Care Head Of Stock Name Role Phone Elsewhere, Pcp Primary Care Provider Unavailabl e Source Comments Patient records contain information from all sites at [facility]. For routine questions regarding patient records, call [phone] during business hours, M-F 8:00 AM - 5:00 PM Central Time. Record requests for emergency care only can be directed to [phone] at any time.[facility] Allergies No known active allergies Medications aspirin [address] tablet Take 81 mg by mouth daily. 10/31/2021 Active atorvastatin (LIPITOR) 10 mg tablet Take 10 mg by mouth at bedtime. 10/13/2021 Active gabapentin (NEURONTIN) 300 mg capsule Take 300 mg by mouth 3 (three) times a day. Patient states takes 1-3 times daily 10/13/2021 Active metFORMIN XR (GLUCOPHAGE-XR) 500 mg 24 hr tablet Take 500 mg by mouth daily with breakfast. 10/13/2021 Active omeprazole (PriLOSEC) [address] capsule Take 20 mg by mouth daily. 08/29/2021 Active tamsulosin (FLOMAX) 0.4 mg 24 hr capsule Take 1 capsule (0.4 mg total) by mouth daily. 90 capsule 3 11/29/2022 Active Active Problems Problem Noted Date Diagnosed Date Elevated Blood Pressure Without Hypertension Hyperlipidemia Mixed 10/13/2021 Anterior Dislocation Of Left Humerus Initial 10/2020 Other Specified Acquired Deformities Left Upper Arm 06/28/2021 Primary Osteoarthritis Shoulder Left 06/28/2021 PreDiabetes 09/23/2019 Pain Back 06/15/2011 Immunizations Immunization Administration Dates Next Due DTaP ([employer], [employer]) 08/19/2009 Influenza, Unspecified 08/17/2003 Tdap 08/19/2009 Family History Relation Name Status Comments Mother Social History Tobacco Use Types Packs/Day Years Used Date Smoking Tobacco: Former Cigarettes 1 10 Smokeless Tobacco: Former Tobacco Cessation:Counseling Given: Not Answered Alcohol Use Standard Drinks/Week Comments Not Currently 0 (1 standard drink = 0.6 oz pur e alcohol) Nutrition Answer Date Recorded Nutrition: EVOO Fat Source Unknown 11/22 Nutrition: Servings of Fruits/Vegetables per Day Not on file 11/22/2022 Dental Answer Date Recorded Dental: Regular Dentist Unknown 11/23/19 Sex and Gender Information Value Date Recorded Sex Assigned at Not on file 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 Gender Identity Not on file Sexual Orientation Not on file Last Filed Vital Signs Vital Sign Reading Time Taken Comments Blood Pressure 116/72 02/13/2013 9:47 AM CDT Pulse - - Temperature - - Respiratory Rate - - Oxygen Saturation - - Inhaled Oxygen Concentration - - Weight 85.3 kg (188 lb 0.8 oz) 02/13/2013 9:47 A M CDT Height 178 cm (5' 10.08) 05/27/2012 1:06 PM CDT Body Mass Index 26.92 05/27/2012 1:06 PM CDT Plan of Treatment Health Maintenance Due Date Last Done Comments CT Colonography 1965 Cologuard 1965 Colonoscopy 1965 Colorectal Cancer Screening 1965 FIT 1965 HIV Screening 1965 Hepatitis C Screening 1965 Hepatitis B Vaccines (1 of 3 - 19+ 3-dose series) 1985 Pneumococcal vaccine (50+ years) (1 of 1 - PCV) 01/22/2016 Zoster Vaccines (1 of 2) 01/22/2016 Fasting Glucose for Diabetes Screening 11/16/2023 11/15/2022, 12/12/2020, 09/21/2019, Additional history exists COVID-19 Vaccine ( - 2023- season) 2024 06/08/2021, 05/18/2021 Influenza Vaccine (#1) 2024 08/17/2003 Depression Screening (Annual PHQ-2) 08/26/2024 Lipid (Cholesterol) Screening 09/21/2024 09/21/2019, 02/04/2018 DTaP,Tdap,and Td Vaccines (4 - Td or Tdap) 12/31/2032 12/31/2022, 08/19/2009, 08/19/2009 IPV Vaccines Aged Out No longer eligi ble based on patient's age to complete this topic Insurance [facility] Care Teams Head Of Stock Relationship Specialty Start Date End Date Elsewhere, Pcp PCP - General 10/27/18
[2024-11-17 23:08] VITALS: BP 152/70; PULSE 101; RESP 16; TEMP 37.7; O2SAT 90; BMI 30.4
--- NOTE | 2024-11-17 23:42 | ED_ITS ---
HPI - Fever General Time Seen by Provider: 23:42 Date Seen: 11/17/24 Chief Complaint: Fever Stated Complaint: Fever, had surgery saturday Time Seen by Provider: 11/17/24 23:05 Source: patient, RN notes reviewed and old records reviewed Mode of arrival: ambulatory Limitations: no limitations History of Present Illness HPI Narrative: This 59-year-old male is ambulatory into the ER with onset of a 103.5F fever at home this evening. He took 2 Tylenol around 9:00 p.m.,? A 1000 mg. He is noticing some coughing, nonproductive, generalized body aches, increase left damian gical site pain. He has not had a bowel movement since surgery in did take 2 laxative type pills of some sort. He is passing gas, is urinating. He has had a headache tonight with this. No sore throat. No nausea vomiting, is able to eat. He is not sure when he last had any pain medicine besides the Tylenol. He had an open left inguinal hernia repair on Saturday11/16/2024. Related Data Home Medications ?Medication ?Instructions ?Recorded ?Confirmed omeprazole 20 mg capsule,delayed 20 mg PO DAILY 08/13/23 11/16/24 release tamsulosin 0.4 mg capsule 0.4 mg PO DAILY 08/13/23 11/16/24 Previous Rx's ?Medication ?Instructions ?Recorded hydrocodone 5 mg-acetaminophen 325 1 tab PO Q6H PRN pain #25 tabs 11/16/24 mg tablet Allergies Allergy/AdvReac Type Severity Reaction Status Date / Time No Known Drug Allergies Allergy Verified 11/16/24 06:09 Review of Systems Status of ROS Reports: 6 or more systems reviewed and unremarkable except as noted in History and below [facility] Medical History Nasal septal perforation ?J34.89 - Other specified disorders of nose and nasal sinuses (ICD-10) HTN (hypertension) ?I10 - Essential (primary) hypertension (ICD-10) Chronic GERD ?K21.9 - Gastro-esophageal reflux disease without esophagitis (ICD-10) Mixed hyperlipidemia ?E78.2 - Mixed hyperlipidemia (ICD-10) Arthritis of left acromioclavicular joint ?M19.012 - Primary osteoarthritis, left shoulder (ICD-10) Hill Sachs deformity, left ?S42.292A - Other displaced fracture of upper end of left humerus, initial encounter for closed fracture (ICD-10) Anterior dislocation of left shoulder ?S43.015A - Anterior dislocation of left humerus, initial encounter (ICD-10) Prediabetes ?R73.03 - Prediabetes (ICD-10) Back pain ?M54.9 - Dorsalgia, unspecified (ICD-10) Surgical History History of hernia repair ?Z98.890 - Other specified postprocedural states (ICD-10) ?Z87.19 - Personal history of other diseases of the digestive system (ICD-10) H/O total hip arthroplasty ?Z96.649 - Presence of unspecified artificial hip joint (ICD-10) Social History Smoking Status: Former smoker Do you use any of these nicotine containing products: None Second hand tobacco smoke exposure: No How often do you have a drink containing alcohol: never AUDIT-C Alcohol total score: 0 Non-prescribed substance use: denies use Caffeine: Yes Exam Const Vital Signs, click to edit/add: Vital Signs - 24 hr 11/17/24 23:08 11/17/24 23:46 11/18/24 00:05 Temperature 99.9 F H Pulse Rate Pulse Rate [Left Pulse Oximeter] 101 H Pulse Rate [Pulse Oximeter] Respiratory Rate 16 Blood Pressure Blood Pressure [Right Arm] Blood Pressure [Right Upper Arm] 152/70 H Pulse Oximetry 90 90 86 L Oxygen Delivery Method Room Air Room Air Oxygen Flow Rate 11/18/24 00:05 11/18/24 00:20 11/18/24 00:31 Temperature 99.9 F H Pulse Rate 97 Pulse Rate [Left Pulse Oximeter] Pulse Rate [Pulse Oximeter] 97 Respiratory Rate 16 14 Blood Pressure 109/78 Blood Pressure [Right Arm] 109/73 Blood Pressure [Right Upper Arm] Pulse Oximetry 86 L 91 91 Oxygen Delivery Method Room Air Room Air Nasal Cannula Oxygen Flow Rate 2 This 59-year-old male is alert, interactive, no apparent distress but is moaning. He can speak in complete sentences, speech is normal. Sclera clear, face atraumatic. Lungs actually are clear, no wheezing or crackles, no tachypnea or accessory muscle use. CV slightly fast but regular, no murmur, no rmal S1-S2, no S3-S4. He has bandages on his left abdomen, there white, no drainage through them. He is a scrotal support on, there is some scrotal edema but no erythema. The skin surrounding the bandage is not showing any significant warmth, no significant erythema. He does complain of pain when I palpate over the bandage area but I do not feel any definite evidence of any fluctuance. No calf tenderness bilaterally. Abdomen seems like it might be mildly distended overall, do hear bowel sounds, no rebound or guarding noted, nontender elsewhere. Documenting provider has reviewed patient's vital signs: yes Course Course ED Course: Obviously need to consider infectious etiology that does include postoperative pneumonia, new illness which could be viral like COVID, influenza, RSV. He could have postsurgical wound complications, would be early I would think to h ave an abscess but will consider this, certainly will be delineated on CT imaging. Will proceed with CT imaging of his chest abdomen pelvis so that we have imaging to rule out such things as pneumonia or postoperative wound/surgical complication. Will be doing 2 blood cultures, full complement of labs, attempt to get urinalysis if he is able to. Will give him an IV dose of Toradol, initiate a L of IV fluids. He will be on pulse oximetry, need to observe and consider sepsis and will be watched closely. Reevaluation(s) Time of Reevaluation #1: 00:22 Reevaluation #1: Just before going over to have his CT imaging done, nursing staff noted his oxygenation went to 86%. Do note he only came in at 90% on his oxygenation saturation. 2 L nasal cannula replaced with good rebound. This does make me more concerned about possible respiratory infections or postsurgical complication like pneumonia. Time of Reevaluation #2: 00:35 Reevaluation #2: I have reviewed his CT images, do feel that there probably right-sided pneumonia changes. If you consider his temperature at home and his pulse being greater than 90, does meet criteria for sepsis. He had received initial L of fluids on arrival, have ordered another 1500 mL of fluids plus Zosyn. This should get him to 2700 or close to the 30 mils per kilos fluid resuscitation for sepsis. Did review UpToDate and he really should not have multidrug concerns. I am not aw are of any IV antibiotic usage within the last 3 butts. Thus Zosyn for antibiotic will be considered, if concerns for MRSA issues should become prevalent, coverage could be added. Will obviously talk to the hospitalist. Am awaiting vital CT over-read by Radiology. Time of Reevaluation #3: 01:20 Reevaluation #3: Patient updated on plan and findings. Consultations Consultation #1: Have spoken with [facility], they will page Dr. Fuller to review chart and call me back to discuss admission. 1:12 a.m.: Have spoken with Dr. Fuller. He does accept this patient. We discussed at the criteria for sepsis, he would recommend coverage with vancomycin as well. I have subsequently ordered at 2 g IV vancomycin. Have reviewed with him that I do believe that this is postoperative pneumonia based on patient's clinical presentation. Time: 01:05 Vital Signs Vital signs: Initial Vital Signs Temperature 99.9 F H 11/17/24 23:08 Temperature Source Temporal Artery Scan 11/17/24 23:08 Pulse Rate 101 H 11/17/24 23:08 Pulse Rhythm Regular 11/17/24 23:08 Respiratory Rate 16 11/17/24 23:08 Blood Pressure 152/70 H 11/17/24 23:08 Blood Pressure Mean 97 11/17/24 23:08 Blood Pressure Position Sitting 11/17/24 23:08 Pulse Oximetry 90 11/17/24 23:08 Oxygen Delivery Method Room Air 11/17/24 23:08 Vital Signs Temperature 99.9 F H 11/17/24 23:08 Pulse Rate 101 H 11/17/24 23:08 Respiratory Rate 16 11/17/24 23:08 Blood Pressure 152/70 H 11/17/24 23:08 Pulse Oximetry 90 11/17/24 23:08 Oxygen Delivery Method Room Air 11/17/24 23:08 Temperature 99.9 F H 11/18/24 00:20 Pulse Rate 97 11/18/24 00:31 Respiratory Rate 14 11/18/24 00:31 Blood Pressure 109/78 11/18/24 00:31 Pulse Oximetry 91 11/18/24 00:31 Oxygen Delivery Method Nasal Cannula 11/18/24 00:31 Oxygen Flow Rate 2 11/18/24 00:31 Medications Administered Medications: Generic Name Dose Route Start Last Admin Trade Name Freq PRN Reason Stop Dose Admin Sodium Chloride 1,000 mls @ 500 mls/hr 11/17/24 23:47 11/17/24 23:55 0.9 % Sodium Chloride 1000 Ml IV 11/18/24 01:46 500 mls/hr .Q2H TAMEKA Administration Discontinued Medications Generic Name Dose Route Start Last Admin Trade Name Chadwickq PRN Reason Stop Dose Admin Ketorolac Tromethamine 15 mg 11/17/24 23:46 11/17/24 23:56 Ketorolac 15 Mg/Ml Inj IVP 11/17/24 23:47 15 mg ONCE ONE Administration MDM - Fever Lab Data Attestation: I reviewed the patient's lab results. Labs: Lab Results 11/17/24 11/17/24 Range/Units 23:35 23:50 WBC 11.36 H (4.50-11.00) K/uL RBC 5.45 (4.30-5.90) m/uL Hgb 15.4 (13.5-17.5) gm/dL Hct 46.4 (37.0-53.0) % MCV 85 (80-100) fL MCH 28 (26-34) pg MCHC 33 (32-36) gm/dL RDW Coeff of Kathya 13.5 (11.5-15.5) % Plt Count 219 (140-440) K/uL Neut % (Auto) 75.6 H (42.0-72.0) % Lymph % (Auto) 14.1 L (20-44) % Lake % (Auto) 9.6 (0.0-11.0) % Eos % (Auto) 0.1 (0.0-7.0) % Baso % (Auto) 0.3 (0.0-3.0) % Neut # (Auto) 8.60 H (1.7-7.0) K/uL Lymph # (Auto) 1.60 (0.90-2.90) K/uL Lake # (Auto) 1.10 H (0.00-0.90) K/UL Eos # (Auto) 0.00 (0.00-0.50) K/uL Baso # (Auto) 0.00 (0.00-0.30) K/uL Abs Immat Gran (auto) 0.00 (0.00-0.30) K/uL Imm/Tot Granulo (auto) 0.3 % Sodium 133 L (135-149) mmol/L Potassium 4.0 (3.6-5.1) mmol/L Chloride 100 (96-114) mmol/L Carbon Dioxide 23 (20-32) mmol/L Anion Gap 10 (7-15) mEq/L BUN 13 (7-30) mg/dL Creatinine 0.8 (0.5-1.5) mg/dL Estimated Creat Clear 97.38 Estimated GFR 103 ml/min Glucose 108 (60-115) mg/dL Lactate 1.0 (0.5-1.9) mmol/L Calcium 8.3 L (8.4-10.6) mg/dL Total Bilirubin 1.2 (0.1-1.5) mg/dL AST 39 H (12-35) U/L ALT 37 (4-50) U/L Alkaline Phosphatase 85 (40-150) U/L C-Reactive Protein 23.4 H (0.5-1.0) mg/dL Total Protein 7.1 (6.0-8.3) g/dL Albumin 3.9 (3.3-5.0) g/dL SARS-CoV-2 (PCR) Negative SARS-CoV-2 (Negative) Influenza Type A (PCR) Negative PCR FLU A (Negative) Influenza Type B (PCR) Negative PCR FLU B (Negative) RSV (PCR) Negative PCR RSV (Negative) Imaging Data CT Chest/Ab/Pelvis: Attestation: I have reviewed the pertinent imaging results. Radiologist's impression: Patient: MATTHEW ANDRE Facility:?[facility] Patient ID:?[id number] Site Patient ID:?[id number]. Site :?1965 Study:?CT-Chest/Abd/Pelvis W/ISOVUE 370 98CC-11/18/2024 12:25:59 AM Ordering Physician:Pablo Doll Final Report: INDICATION: Post fever, cough, incisional surgical site pain after hernia repair. TECHNIQUE: CT chest, abdomen and pelvis acquired 98 cc Isovue 370 IV contrast. COMPARISON: None. FINDINGS: CHEST: Cardiovascular structures: Heart size is normal. Thoracic aorta and main pulmonary artery are normal in caliber. Mild vascular calcifications. Mediastinum and binta: No mass or adenopathy. Lungs and pleura: Mild bilateral subsegmental consolidation favored to represent atelectasis based on distribution. No definite acute infiltrate. No suspicious nodules. No pleural effusion. No pneumothorax. Chest wall and axilla: No mass or adenopathy. Calcified right hilar lymph nodes suggest prior granulomatous disease. Bones: No acute or suspicious lesions. ABDOMEN AND PELVIS: Liver: Unremarkable. Gallbladder and bile ducts: Unremarkable. Pancreas: Unremarkable. Spleen: Unremarkable. Adrenal glands: Unremarkable. Kidneys: Subcentimeter hypodense lesions too small to characterize, possibly cysts. Bilateral nonobstructive renal calcifications. No hydronephrosis. GI tract: Small hiatal hernia containing trace fluid. Normal caliber. Normal appendix. Vascular structures: Mild vascular calcifications. No abdominal aortic aneurysm. Lymph nodes: Unremarkable. Peritoneum/Retroperitoneum/Abdominal Wall: Scattered fluid and emphysema within the left inguinal hernia and lower left lower abdominal wall, likely postsurgical. No focal drainable collection at this time. No focal drainable collection at this time. No pneumoperitoneum. Pelvic Organs: Limited evaluation due to streak artifact from adjacent hip hardware. Within these limits: Bladder is unremarkable. Prostate is unremarkable. Bones and superficial soft tissues: No acute or suspicious lesions. Right hip arthroplasty. IMPRESSION: 1. No definite acute findings. 2. Mild subsegmental pulmonary consolidation favored to represent atelectasis. No definite acute infiltrate. 3. Left inguinal hernia and left lower abdominal wall postsurgical changes. No focal drainable fluid collection at this time. Please note that all CT scans at this facility use dose modulation, iterative reconstruction, and/or weight-based dosing when appropriate to reduce radiation dose to as low as reasonably achievable. Dictated by Jong Mosquera MD @ 11/18/2024 12:59:28 AM (Electronic Signature) Discharge Plan Discharge Patient Disposition: Admitted As Observation
[2024-11-17 23:46] VITALS: O2SAT 90
--- OUTSIDE RECORDS SUMMARY | 2024-11-17 23:52 | XMS_ITS | Clinical Summary ---
Author Organization [facility] Address [address] [place] [address] Care Team Providers Care Outside Rigger Name Role Phone Elsewhere, Pcp Primary Care Provider Unavailabl e Source Comments Patient records contain information from all sites at [facility]. For routine questions regarding patient records, call [phone] during business hours, M-F 8:00 AM - 5:00 PM Central Time. 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
--- OUTSIDE RECORDS SUMMARY | 2024-11-17 23:52 | XMS_ITS | Clinical Summary ---
Author Organization [facility] Address [address] [place] [address] Care Team Providers Care Cream Buyer Name Role Phone Rachel Kenney Primary Care Provider [phone]- [phone] Allergies No known active allergies Medications acetaminophen [...] Description 11/16/2024 7:00 AM CDT Office Visit [facility] [address] [place] [address] Sharla Allan MD Surgery Scheduled 11/16/2024 Orders Only [facility] Scanner 1 scan: (1-Ord) LEE VINING, OPEN LEFT INGUINAL HERNIA REPAIR WITH MESH, 11/16/2024 11/13/2024 10:30 AM CDT Office Visit [facility] [address] [place] [address] Rachel Kenney PA Preoperative Exam (Dr. Allan, [facility], 11/16/24, left inguinal hernia repair) 11/13/2024 Travel 11/09/2024 3:00 PM CDT Office Visit [facility] [address] [place] [address] Sharla Allan MD Consult (Left inguinal hernia) 11/09/2024 Travel 11/04/2024 2:20 PM CDT Office Visit [facility] [address] [place] [address] Jo Ann Roberts MD Referral (To get hernia repair surgery Left inguinal hernia ) 11/04/2024 Travel from Last 3 Months Immunizations Immunization Administration Dates Next Due COVID-19 vaccine ([employer] [place] 30mcg/0.3mL) P F, MDV 06/08/2021,05/18/2021 DTaP 08/19/2009 [...] on file 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 Gender Identity Not on file Sexual Orientation [...] Description 11/30/2024 2:00 PM CDT Office Visit [facility] [address] [place] [address] Sharla Allan MD [address] [place] [address] Health Maintenance Due Date Last Done Comments [...] booster 12/31/2032 12/31/2022, 07/27 (Completed outside of [facility]), 08/19/2009 Tdap Completed 12/31/2022, 08/19/2009 Medical Devices Implanted Type Area Net Mobile Developer Device Identifier Shelf Expiration Date Model / Serial / Lot Mesh Ventral 1.7in Ventralex St W/Strap - [id number] Implanted:Qty: 1 on 07/05/2020 by Yogesh Noel MD at [facility] [employer] 01/20/2022 [id number] / / [id number] Procedures Procedure Name Priority Date/Time Associated Diagnosis [...] NO Rachel RIOS CHEMISTRY Final Resu lt [facility] [address] [place] [address], [facility] [address] [place] [address] * (ABNORMAL) LIPID PANEL W REFLEX MEASURED LDL (11/13/2024 11:18 AM CDT) [facility] CHOLESTEROL, TOTAL 176 <200 mg/dL [facility] HDL CHOLESTEROL 53 > OR = 40 mg/dL [facility] TRIGLYCERIDES 239(H) <150 mg/dL [facility] Comment: If a non-fasting specimen was collected, consider repeat triglyceride testing on a fasting specimen if clinically indicated. Juan Luis et al. J. of Clin. Lipidol. 2015;9:129-169. LDL-CHOLESTEROL 90 mg/dL (calc) [facility] Comment: Reference range: <100 Desirable range <100 mg/dL for primary prevention; <70 mg/dL for patients with CHD or diabetic patients with > or = 2 CHD risk factors. LDL-C is now calculated using the Uzair calculation, which is a validated novel method providing better accuracy than the Friedewald equation in the estimation of LDL-C. Celestine MATA et al. KETTY. 2013;310(19): 5141-8879 (http://education.Spreaker/faq/QON932) CHOL/HDLC RATIO 3.3 <5.0 (calc) [facility] NON HDL CHOLESTEROL 123 <130 mg/dL (calc) [facility] Comment: For patients with diabetes plus 1 major ASCVD risk factor, treating to a non-HDL-C goal of <100 mg/dL (LDL-C of <70 mg/dL) is considered a therapeutic option. Blood BLOOD SPECIMEN / Unknown 11/13/2024 11:18 AM CDT 11/13/2024 11:20 AM CDT Narrative [facility] - 11/14/2024 3:17 AM CDT FASTING:NO FASTING: NO Rachel RIOS CHEMISTRY Final Resu lt [facility] [address] [place] [address], [facility] [address] [place] [id number] * PSA TOTAL (DIAG OR SCREEN) (11/13/2024 11:18 AM CDT) PSA, TOTAL 0.27 < OR = 4.00 ng/mL [employer] [facility] Comment: The total PSA value from [...] AM CDT 11/13/2024 11:20 AM CDT Narrative [facility] - 11/14/2024 5:25 AM CDT FASTING:NO FASTING: NO us Rachel RIOS CHEMISTRY Final Resu lt [facility] [address] [place] [address], [facility] [address] [place] [address] * COMP METABOLIC PANEL (11/13/2024 11:18 AM CDT) Pathologist [facility] GLUCOSE 120 65 - 139 mg/dL [facility] Comment: Non-fasting reference interval UREA [...] 0.2 - 1.2 mg/dL [facility] ALKALINE PHOSPHATASE 89 35 - 144 U/L [facility] AST 21 10 - 35 U/L [facility] ALT 24 9 - 46 U/L [facility] Blood BLOOD SPECIMEN / Unknown 11/13/2024 11:18 AM CDT 11/13/2024 11:20 AM CDT Narrative [facility] - 11/14/2024 3:17 AM CDT FASTING:NO FASTING: NO Rachel RIOS CHEMISTRY Final Resu lt [facility] [address] [place] [address], [facility] [address] [place] [address] * COLONOSCOPY (04/24/2018 10:50 AM CDT) 04/24/2018 10:5 0 AM CDT Narrative Transcriptions Yogesh Noel MD - 04/24/2018 11:39 AM CDT Patient Name: Tony Aparicio Procedure Date: 04/24/2018 Gender: Male Date of : 1965 Admit Type: Ambulatory Procedure: Colonoscopy Proceduralist: Yogesh Carrillo [facility] Indications/Pre-Op Diagnosis: Screening for colorectal malignantneoplasm [...] to Health Maintenance Insurance [employer]ICA CHOICE CARE [facility] Advance Directives * Full Code (Latest Code [...] Code Status Discussion: Not Discussed Care Teams Cream Buyer Relationship Specialty Start Date End Date Rachel Kenney PA [address] [facility] [place] [address] PCP - General Physician Teaching Specialists 06/20/23
[2024-11-17] MEDS: 0.9 % SODIUM CHLORIDE 1000 ml 1,000 ML 500 ML IV (23:55)
[2024-11-17] MEDS: KETOROLAC 15 MG/ML inj IVP (23:56)
[2024-11-18] VITALS (18 sets, daily range): BP systolic 103–134; BP diastolic 66–97; PULSE 65–99; RESP 14–26; TEMP 36.7–37.7; O2SAT 86–96; BMI 31.8
--- NOTE | 2024-11-18 | CRLHL7_ITS ---
For Patients: As a result of the Century Cures Act, medical imaging exams and procedure reports are released immediately into your electronic medical record. You may view this report before your referring provider. If you have questions, please contact your health care provider. INDICATION: Post fever, cough, incisional surgical site pain after hernia repair. TECHNIQUE: CT chest, abdomen and pelvis acquired 98 cc Isovue 370 IV contrast. COMPARISON: None. FINDINGS: CHEST: Cardiovascular structures: Heart size is normal. Thoracic aorta and main pulmonary artery are normal in caliber. Mild vascular calcifications. Mediastinum and binta: No mass or adenopathy. Lungs and pleura: Mild bilateral subsegmental consolidation favored to represent atelectasis based on distribution. No definite acute infiltrate. No suspicious nodules. No pleural effusion. No pneumothorax. Chest wall and axilla: No mass or adenopathy. Calcified right hilar lymph nodes suggest prior granulomatous disease. Bones: No acute or suspicious lesions. ABDOMEN AND PELVIS: Liver: Unremarkable. Gallbladder and bile ducts: Unremarkable. Pancreas: Unremarkable. Spleen: Unremarkable. Adrenal glands: Unremarkable. Kidneys: Subcentimeter hypodense lesions too small to characterize, possibly cysts. Bilateral nonobstructive renal calcifications. No hydronephrosis. GI tract: Small hiatal hernia containing trace fluid. Normal caliber. Normal appendix. Vascular structures: Mild vascular calcifications. No abdominal aortic aneurysm. Lymph nodes: Unremarkable. Peritoneum/Retroperitoneum/Abdominal Wall: Scattered fluid and emphysema within the left inguinal hernia and lower left lower abdominal wall, likely postsurgical. No focal drainable collection at this time. No focal drainable collection at this time. No pneumoperitoneum. Pelvic Organs: Limited evaluation due to streak artifact from adjacent hip hardware. Within these limits: Bladder is unremarkable. Prostate is unremarkable. Bones and superficial soft tissues: No acute or suspicious lesions. Right hip arthroplasty. IMPRESSION: 1. No definite acute findings. 2. Mild subsegmental pulmonary consolidation favored to represent atelectasis. No definite acute infiltrate. 3. Left inguinal hernia and left lower abdominal wall postsurgical changes. No focal drainable fluid collection at this time. Please note that all CT scans at this facility use dose modulation, iterative reconstruction, and/or weight-based dosing when appropriate to reduce radiation dose to as low as reasonably achievable. Dictated by Jong Mosquera MD @ 11/18/2024 12:59:28 AM (Electronically Signed)
[2024-11-18 00:06] LABS: Basophils Percent Auto 0.3 % (0.0-3.0); Eosinophils Percent Auto 0.1 % (0.0-7.0); Hematocrit 46.4 % (37.0-53.0); Hemoglobin* 15.4 gm/dL (13.5-17.5); Immature Granulocytes Pct Auto 0.3 %; Lymphocytes Percent Auto 14.1 % (20-44); Mean Corpuscular HGB Conc 33 gm/dL (32-36); Mean Corpuscular Hemoglobin 28 pg (26-34); Mean Corpuscular Volume 85 fL (80-100); Monocytes Percent Auto 9.6 % (0.0-11.0); Neutrophils Percent Auto 75.6 % (42.0-72.0); Platelet Count* 219 K/uL (140-440); RDW Coefficient of Variation % 13.5 % (11.5-15.5); Red Blood Count 5.45 m/uL (4.30-5.90); White Blood Count* 11.36 K/uL (4.50-11.00)
[2024-11-18 00:08] LABS: Albumin* 3.9 g/dL (3.3-5.0); Chloride* 100 mmol/L (96-114); Sodium* 133 mmol/L (135-149)
[2024-11-18 00:10] LABS: Alanine Aminotransferase* 37 U/L (4-50); Aspartate Amino Transferase* 39 U/L (12-35); Blood Urea Nitrogen* 13 mg/dL (7-30); Creatinine* 0.8 mg/dL (0.5-1.5); Est. Creatinine Clearance* 97.38; Estimated Glomerular Filt Rate 103 ml/min
[2024-11-18 00:11] LABS: Alkaline Phosphatase* 85 U/L (40-150); Anion Gap 10 mEq/L (7-15); Bilirubin Total* 1.2 mg/dL (0.1-1.5); Calcium* 8.3 mg/dL (8.4-10.6); Carbon Dioxide* 23 mmol/L (20-32); Glucose* 108 mg/dL (60-115); Total Protein* 7.1 g/dL (6.0-8.3)
[2024-11-18 00:13] LABS: Slide Review Reflex No
[2024-11-18 00:25] LABS: C Reactive Protein* 23.4 mg/dL (0.5-1.0)
[2024-11-18 00:43] LABS: PCR FLU A Negative PCR FLU A (Negative); PCR FLU B Negative PCR FLU B (Negative); PCR RSV Negative PCR RSV (Negative); SARS PCR* Negative SARS-CoV-2 (Negative)
[2024-11-18] MEDS: 0.9 % SODIUM CHLORIDE 1000 ml 1,000 ML IV (01:31)
[2024-11-18] MEDS: PIPERACILLIN/TAZOBACTAM 4.5 GM in 0.9 % SODIUM CHLORIDE Mini-bag 100 ML IVPB (01:31)
[2024-11-18] MEDS: VANCOMYCIN 2 GM/400 ML 2 GM/400 ML PIGGYBACK IVPB (02:08)
[2024-11-18] MEDS: 0.9 % SODIUM CHLORIDE 500 ML 500 ML IV (02:09)
--- NOTE | 2024-11-18 03:58 | W.PM.TELEH&P ---
Telehealth- H&P: HPI History of Present Illness Date Seen: 11/18/24 Chief complaint: Fever, had surgery saturday Narrative: Tony Aparicio is seen as an Interactive Telehealth visit. Tony Aparicio is a 59 year old male who is who presents to hospital with complaints of cough and abdominal pain. On November 16, 2024, the patient was seen by Dr. Obrien for a symptomatic large left inguinal hernia. Patient was found to have an incarcerated left inguinal hernia. At the time he had had a hernia for a prolonged period of time. However the hernia had increased in size in his left scrotum and he was noticing pain. It was partially able to be reduced. He denied any symptoms of obstruction. Given the patient's exam, the plan was for the patient to undergo an open left inguinal hernia repair. The patient underwent a indirect hernia sac incision which was eventually pushed into the preperitoneal space. Patient underwent a mesh plug placement and eventually did very well and was discharged home. Over the past 24 hours, he has been noticing increasing cough shortness of breath and then associated abdominal pain. His abdominal pain was associate with his cough. When he presented to the ER he was noted to have a fever of 103.5. He was noted to have a nonproductive cough with bodyaches. He was passing gas. He denies any nausea or vomiting. He denied any abnormality to the site of his wound. In the ER he was noted to be tachycardic, febrile. He underwent viral testing which was negative. He underwent CT scan of the chest abdomen pelvis which showed no complication of the surgical area. There was some possible area of pneumonia. Blood cultures were obtained. He was given IV fluids. Upon my examination, he was seen on the floors. Patient's wound was examined. We were able to get down to the area of his abdominal incision. There was no evidence of wound dehiscence. There was no signs of any redness erythema purulence. He did complain more about cough and shortness of breath. Upon lung exam he was noted to be markedly wheezy and was constantly coughing. Review of Systems Status of ROS: Reports: 10 or more systems reviewed and unremarkable except as noted in History and below Const: Reports: fever, chills and fatigue; Denies: malaise or night sweats Cardio: Reports: shortness of breath with exertion; Denies: chest pain Resp: Reports: shortness of breath, cough and wheezing GI: Reports: abdominal pain; Denies: nausea or vomiting : Denies: painful urination or urinary frequency Musculo: Denies: back pain Integ/Breast: Denies: rash Endo: Reports: fatigue Allergy/Immuno: Reports: wheezing PFSH [facility] Medical History Nasal septal perforation ?J34.89 - Other specified disorders of nose and nasal sinuses (ICD-10) HTN (hypertension) ?I10 - Essential (primary) hypertension (ICD-10) Chronic GERD ?K21.9 - Gastro-esophageal reflux disease without esophagitis (ICD-10) Mixed hyperlipidemia ?E78.2 - Mixed hyperlipidemia (ICD-10) Arthritis of left acromioclavicular joint ?M19.012 - Primary osteoarthritis, left shoulder (ICD-10) Hill Sachs deformity, left ?S42.292A - Other displaced fracture of upper end of left humerus, initial encounter for closed fracture (ICD-10) Anterior dislocation of left shoulder ?S43.015A - Anterior dislocation of left humerus, initial encounter (ICD-10) Prediabetes ?R73.03 - Prediabetes (ICD-10) Back pain ?M54.9 - Dorsalgia, unspecified (ICD-10) Surgical History History of hernia repair ?Z98.890 - Other specified postprocedural states (ICD-10) ?Z87.19 - Personal history of other diseases of the digestive system (ICD-10) H/O total hip arthroplasty ?Z96.649 - Presence of unspecified artificial hip joint (ICD-10) Social History Smoking Status: Former smoker Do you use any of these nicotine containing products: None Second hand tobacco smoke exposure: No How often do you have a drink containing alcohol: never AUDIT-C Alcohol total score: 0 Non-prescribed substance use: denies use Caffeine: Yes Meds Home Medications and Allergies Home Medications ?Medication ?Instructions ?Recorded ?Confirmed ?Type omeprazole 20 mg capsule,delayed 20 mg PO DAILY 08/13/23 11/16/24 History release tamsulosin 0.4 mg capsule 0.4 mg PO DAILY 08/13/23 11/16/24 History Allergies Allergy/AdvReac Type Severity Reaction Status Date / Time No Known Drug Allergies Allergy Verified 11/16/24 06:09 Exam Narrative Exam Narrative: Physical Exam GENERAL: ?vital signs reviewed, well developed and nourished HEART: Regular rate and rhythm without any rubs, murmurs, or gallops. LUNGS: bilateral wheezing - difficult to hear as the patient was coughing throughout ABDOMEN: wound examined- no signs of purulence or redness from the site EXTREMITIES: Strength and sensation is observed to be grossly within normal limits in the upper and lower extremities.? No focal strength deficit is observed. SKIN:? Observed warm and dry with color normal Const Vital Signs, click to edit/add: Vital Signs - 24 hr 11/17/24 23:08 11/17/24 23:46 11/18/24 00:05 Temperature 99.9 F H Pulse Rate Pulse Rate [Left Pulse Oximeter] 101 H Pulse Rate [Pulse Oximeter] Respiratory Rate 16 Blood Pressure Blood Pressure [Right Arm] Blood Pressure [Right Upper Arm] 152/70 H Pulse Oximetry 90 90 86 L Oxygen Delivery Method Room Air Room Air Oxygen Flow Rate 11/18/24 00:05 11/18/24 00:20 11/18/24 00:31 Temperature 99.9 F H Pulse Rate 97 Pulse Rate [Left Pulse Oximeter] Pulse Rate [Pulse Oximeter] 97 Respiratory Rate 16 14 Blood Pressure 109/78 Blood Pressure [Right Arm] 109/73 Blood Pressure [Right Upper Arm] Pulse Oximetry 86 L 91 91 Oxygen Delivery Method Room Air Room Air Nasal Cannula Oxygen Flow Rate 2 11/18/24 01:01 11/18/24 01:31 11/18/24 01:45 Temperature Pulse Rate 99 91 87 Pulse Rate [Left Pulse Oximeter] Pulse Rate [Pulse Oximeter] Respiratory Rate Blood Pressure 125/77 109/73 Blood Pressure [Right Arm] Blood Pressure [Right Upper Arm] Pulse Oximetry 93 92 93 Oxygen Delivery Method Nasal Cannula Nasal Cannula Oxygen Flow Rate 2 2 11/18/24 02:01 11/18/24 02:31 Temperature Pulse Rate 88 80 Pulse Rate [Left Pulse Oximeter] Pulse Rate [Pulse Oximeter] Respiratory Rate Blood Pressure 106/69 103/72 Blood Pressure [Right Arm] Blood Pressure [Right Upper Arm] Pulse Oximetry 95 96 Oxygen Delivery Method Nasal Cannula Nasal Cannula Oxygen Flow Rate 2 2 Common normals: oriented x3 General appearance: cooperative, in distress and ill appearing Neuro Common normals: oriented x3 Hospitalist - H&P: Result Labs Labs: Short CBC 11/17/24 Range/Units 23:35 WBC 11.36 H (4.50-11.00) K/uL Hgb 15.4 (13.5-17.5) gm/dL Hct 46.4 (37.0-53.0) % Plt Count 219 (140-440) K/uL BMP 11/17/24 23:35 Sodium 133 L Potassium 4.0 Chloride 100 Carbon Dioxide 23 BUN 13 Creatinine 0.8 Glucose 108 Calcium 8.3 L Liver Function 11/17/24 Range/Units 23:35 Total Bilirubin 1.2 (0.1-1.5) mg/dL AST 39 H (12-35) U/L ALT 37 (4-50) U/L Alkaline Phosphatase 85 (40-150) U/L Albumin 3.9 (3.3-5.0) g/dL Assessment and Plan Assessment and plan (1) Sepsis: Status: Acute (2) Postoperative pneumonia: Status: Acute (3) Hypoxia: Status: Acute (4) Fever: Status: Acute Plan This patient was diagnosed with sepsis. This is based on fevers elevated white count and presumptive postoperative pneumonia. He was given aggressive IV fluids in the ER and started on immediate antibiotics. The source of infection was thought to be related to pneumonia. This is based on CT scan evidence of area of subsegmental atelectasis/pneumonia. Given the clinical status, it appears appropriate to treat him for pneumonia. Patient is already received a significant amount of fluid bolus. Will continue continuous IV fluids and antibiotics. Since he did receive general anesthesia I do think it is warranted to treat him with antibiotics to cover bacterial resistance including MRSA and Pseudomonas. Therefore I will continue vancomycin and Zosyn. I will add on a urinalysis. Blood cultures were ordered, pending the results. Viral testings was all negative. Status post hernia repair: I do not think this is a complicated of the surgery at this time. His wound looks very appropriate. The scrotal area looks appropriate. No evidence of cellulitis or wound dehiscence. DVT prophylaxis Lovenox Telehealth Visit: Todays History and Physical is via interactive telehealth by Dr Alexander Fuller MD The Patient is located [facility], physician is located at [facility]. Nursing staff assisted in the patient's exam. The visit being done today meets criteria for a telehealth visit and the patient or patient's parent/guardian is aware the visit is a telehealth visit. Camera Start time 330 Camera End time 400 Telehealth: Statement Statement Telehealth Visit: Today's History and Physical is provided via interactive telehealth by Alexander Fuller MD.? Patient is located at [facility].? Provider is located at [facility].? Nursing staff assisted with the patient's exam. The visit being done today meets criteria for a telehealth visit and the patient or patient?s parent/guardian is aware the visit is a telehealth visit.
[2024-11-18] MEDS: HYDROmorphone 0.5 mg/0.5 ml inj IVP ×2 (03:59→06:19)
[2024-11-18] MEDS: 0.9 % SODIUM CHLORIDE 1000 ml 1,000 ML 125 ML IV ×3 (04:41→19:48)
[2024-11-18] MEDS: GUAIF/CODEINE 200/20MG/10 ML SOLUTION PO (04:41)
--- NOTE | 2024-11-18 06:09 | PC.NURSE ---
End of shift report [id number]: Pleasant and cooperative with cares. Patient reports severe pain to left groin when he coughs, pain well managed with PRN dilaudid. Surgical incision to groin well approximated, no redness, swelling noted and scant amount of blood on dressing, steri strips intact. Patient denies any chills, afebrile this shift. Patient reports SOB with exertion and with conversation, O2 at 2L per nasal cannula and O2 sats 91-94%. Expiratory wheezing throughout lung urbina. Scrotal edema present, per patient report this is a chronic issue over the last year. Patient has on compression underwear he states was given to him from the surgeon to wear.
[2024-11-18] MEDS: IPRAT-ALBUT 0.5-2.5 MG/3 ML NEB 1 NEB IH ×2 (06:19→22:15)
[2024-11-18] MEDS: PIPERACILLIN/TAZOBACTAM 3.375 GM in 0.9 % SODIUM CHLORIDE Mini-bag 100 ML IVPB ×3 (07:43→19:57)
[2024-11-18 07:54] LABS: HCO3 VBG 24 mmol/L (21-28); PCO2 VBG 35 mmHG (40-50); PO2 VBG 50.9 mmHG (25-47); pH VBG 7.456 (7.32-7.43)
[2024-11-18] MEDS: ALBUTEROL SULFATE 2.5 MG/3 ML VIAL.NEB NEB ×4 (07:54→19:59)
[2024-11-18 08:06] LABS: Troponin I* 0.02 ng/mL (0.01-0.04)
[2024-11-18] MEDS: METHYLPREDNISOLONE SOD SUCC 40 MG/ML IVP (08:14)
[2024-11-18] MEDS: OMEPRAZOLE 20 MG CAPSULE DR PO (08:57)
[2024-11-18] MEDS: TAMSULOSIN HCL 0.4 MG CAPSULE PO (08:57)
--- NOTE | 2024-11-18 09:30 | RESP.RT ---
07:40, Patient lying HOB up slightly, on NC 2 Lpm SaO2 92%, Heart rate 70/minute. Breath rate 24/minute, retracting, slight sniffing position, working at it. BBS, very noticeable Upper Airway Strider, with bilateral musical wheezing inspiratory/expiratory with rhonchi and coarse crackles noted all urbina. Minimal air movement noted. Coarse congested productive cough, swallow most of secretions. Cough appears slightly painful. Two Albuterol nebulizer treatment given one after the other, patient tolerated well, Heart rate 68 to 73/minute. Post treatment, slightly more air movement notes with better, looser, congested cough noted. Patient to receive dose of Solu-Medrol Q 4 hours x 4. Patient is post 2 day hernia repair surgery. 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
[2024-11-18] MEDS: METHYLPREDNISOLONE SOD SUCC 40 MG/ML 20 MG IVP ×3 (12:18→19:54)
--- NOTE | 2024-11-18 13:26 | P.EN_ITS ---
Chart Event Note Date Seen: 11/18/24 Chart Event Note: Upon my arrival to the hospital this morning at 7:00 a.m. I was notified that patient is having wheezing that can be heard outside of the room. As I assessed him he acknowledges he has scratchy sore throat since his left inguinal herniorrhaphy 2 days ago. Has a dry, hacky cough that does not seem to let up since then as well. Indeed patient has stridor that can be heard about 3 doors down from his in the hospital hallway. Sleeping. Arousable. Indicates he is tired from being awake most of the night. Alert and oriented x4. On auscultation of his lungs he does have some musical inspiratory expiratory wheezes in addition to the obvious stridor. Heart tones distant but with regular rhythm. Abdomen benign, soft. Moves all 4 extremities. Impression: 1. Stridor. Most likely due to laryngeal injury from general anesthesia with endotracheal intubation 2 days ago. Respiratory therapy was able to assist with assessment and intervention and observation of this patient. Intense albuterol nebulization, 2.5 mg nebulized x2 immediately after each oth er. Methylprednisolone 40 mg IV once then 20 mg IV q.4 hours times a total of 4 doses. After the above-stated interventions his condition improved substantially with patient coughing up a large amount of thick sputum. We continue to monitor throughout the morning and his condition remained stable thereafter and patient appeared much more comfortable. Continue with other assessment and treatment plans as specified previously
[2024-11-18] MEDS: VANCOMYCIN 1.5 GM/300 ML 1.5 GM/300 ML PIGGYBACK IVPB (14:36)
[2024-11-18 16:49] LABS: Appearance Urine Clear (Clear); Bilirubin Urine Negative (Negative); Blood Urine Negative (Negative); Color Urine Yellow (Yellow); Glucose Urine Trace (Negative); Ketones Urine Negative (Negative); Leukocyte Esterase Urine Negative (Negative); Nitrite Urine Negative (Negative); Protein Urine Negative (Negative); Specific Gravity Urine 1.015 (1.000-1.030); pH Urine 5.5 (5.0-8.5)
[2024-11-18] MEDS: IBUPROFEN 400 MG TABLET PO (17:01)
[2024-11-18 17:03] LABS: RBC Urine 0-2 (0-2); WBC Urine 0-2 (0-5)
--- NOTE | 2024-11-18 19:19 | PC.NURSE ---
End of shift-- Pt pleasant and cooperative. Alert and oriented but drowsy. VSS and pt is afebrile. SPO2 maintained 90-93% on 2L per n.c. Audible wheezing noted. Inspiratory and expiratory wheezing auscultated throughout lungs along with frequent dry coughing. Pt was given a PRN neb along with scheduled Solu-Medrol and appeared greatly improved. Pt c/o pain, increased with coughing, in lower abdomen and was given Motrin with stated improvement. Dressing to left lower abdomen is C/D/I. Abdomen is distended, tender and firm. BS hypoactive. Pt stated that he has passed flatus since surgery, but has yet to have a BM. He was assisted up to the chair with SBA and tolerated it fair. Report to BIANKA Shin.
[2024-11-18] MEDS: ENOXAPARIN 40 MG/0.4 ML INJ SUBCUT (20:17)
[2024-11-19] VITALS (9 sets, daily range): BP systolic 122–144; BP diastolic 76–93; PULSE 71–86; RESP 18–22; TEMP 36.6–37.3; O2SAT 91–97
[2024-11-19] MEDS: PIPERACILLIN/TAZOBACTAM 3.375 GM in 0.9 % SODIUM CHLORIDE Mini-bag 100 ML IVPB ×4 (01:45→21:41)
[2024-11-19] MEDS: ALBUTEROL SULFATE 2.5 MG/3 ML VIAL.NEB NEB ×2 (02:23→06:35)
[2024-11-19] MEDS: VANCOMYCIN 1.5 GM/300 ML 1.5 GM/300 ML PIGGYBACK IVPB ×2 (02:28→14:19)
[2024-11-19] MEDS: polyethylene glycoL 3350 17 GM PACK PO (06:21)
[2024-11-19] MEDS: 0.9 % SODIUM CHLORIDE 1000 ml 1,000 ML 125 ML IV (06:21)
[2024-11-19 06:38] LABS: Basophils Percent Auto 0.1 % (0.0-3.0); Hematocrit 39.1 % (37.0-53.0); Immature Granulocytes Pct Auto 0.3 %; Lymphocytes Percent Auto 5.1 % (20-44); Mean Corpuscular HGB Conc 33 gm/dL (32-36); Mean Corpuscular Hemoglobin 29 pg (26-34); Mean Corpuscular Volume 86 fL (80-100); Monocytes Percent Auto 4.7 % (0.0-11.0); Neutrophils Percent Auto 89.8 % (42.0-72.0); Platelet Count* 195 K/uL (140-440); RDW Coefficient of Variation % 13.3 % (11.5-15.5); Red Blood Count 4.56 m/uL (4.30-5.90)
--- NOTE | 2024-11-19 06:42 | PC.NURSE ---
End of shift [id number]: A&O pleasant and cooperative. Intermittently drowsy throughout shift but wakes to voice. 2L NC w/ sats running 90-94%. VS otherwise stable. Intermittently diaphoretic w/ chills but afebrile throughout shift. Pt encouraged to use IS, cough and deep breath. Abdomen large, round and firm. BS active and pt reports passing gas. MiraLAX given this morning. LS wheezy throughout. PRN nebs given. dressing to abdomen c/d/i. Using urine at bedside. Using call light appropriately.
[2024-11-19 06:43] LABS: Slide Review Reflex No
[2024-11-19 06:52] LABS: Chloride* 111 mmol/L (96-114); Sodium* 139 mmol/L (135-149)
[2024-11-19 06:53] LABS: Potassium* 4.1 mmol/L (3.6-5.1)
[2024-11-19 06:56] LABS: Anion Gap 7 mEq/L (7-15); Blood Urea Nitrogen* 14 mg/dL (7-30); Calcium* 8.3 mg/dL (8.4-10.6); Carbon Dioxide* 21 mmol/L (20-32); Creatinine* 0.6 mg/dL (0.5-1.5); Est. Creatinine Clearance* 129.83; Estimated Glomerular Filt Rate 112 ml/min; Glucose* 137 mg/dL (60-115)
[2024-11-19 07:11] LABS: C Reactive Protein* 17.9 mg/dL (0.5-1.0)
[2024-11-19] MEDS: OMEPRAZOLE 20 MG CAPSULE DR PO (07:44)
[2024-11-19] MEDS: SODIUM CHLORIDE 0.9 % (FLUSH) 10 ML SYRINGE 5 ML IVF ×3 (09:41→20:32)
[2024-11-19] MEDS: TAMSULOSIN HCL 0.4 MG CAPSULE PO (09:41)
--- NOTE | 2024-11-19 15:05 | PC.NURSE ---
Addendum entered by Mary Davenport RN 11/19/24 15:28: Offered patient PRN nebs for wheezing twice this shift, patient refused both times. Original Note: A&Ox4, VSS, reports abdominal tenderness r/t incision site. Patient is tolerating room air, sating >90%. Tolerated walking in [place] well. SOB is improving, continues to have expiratory wheezes at rest.
--- NOTE | 2024-11-19 15:34 | PM.IMPN1 ---
Assessment and Plan Assessment and plan (1) Sepsis: Problem comment: -much improved status post treatment Status: Acute (2) Postoperative pneumonia: Problem comment: -due to recent surgery was placed on piperacillin with tazobactam and vancomycin Status: Acute (3) Hypoxia: Problem comment: -need for oxygen supplementation is new for patient as of 11/18/2024 -monitor needs an attempt to wean Status: Acute (4) Fever: Problem comment: -afebrile for greater than 24 hours as of 11/19/2024 Status: Acute (5) Postextubation stridor: Problem comment: -endotracheal intubation 11/16/2024 at time of left inguinal herniorrhaphy -much improved upon admission to the hospital on 11/18/2024, status post treatment with corticosteroids, albuterol nebulization, coughing and clearing of throat Status: Acute Plan 1. Reviewed impression with patient 2. Answered his questions 3. Proceed with plan as specified above Total Time Spent Total Time Spent: 40 minutes Subjective Date Seen: 11/19/24 Interval history: Admission history of present illness: ?59 year old male who is who presents to hospital with complaints of cough and abdominal pain. ?On November 16, 2024, the patient was seen by Dr. Obrien for a symptomatic large left inguinal hernia. Patient was found to have an incarcerated left inguinal hernia. At the time he had had a hernia for a prolonged period of time. However the hernia had increased in size in his left scrotum and he was noticing pain. It was partially able to be reduced. He denied any symptoms of obstruction. Given the patient's exam, the plan was for the patient to undergo an open left inguinal hernia repair. The patient underwent a indirect hernia sac incision which was eventually pushed into the preperitoneal space. Patient underwent a mesh plug placement and eventually did very well and was discharged home. ?Over the past 24 hours, he has been noticing increasing cough shortness of breath and then associated abdominal pain. His abdominal pain was associate with his cough. When he presented to the ER he was noted to have a fever of 103.5. He was noted to have a nonproductive cough with bodyaches. He was passing gas. He denies any nausea or vomiting. He denied any abnormality to the site of his wound. In the ER he was noted to be tachycardic, febrile. He underwent viral testing which was negative. He underwent CT scan of the chest abdomen pelvis which showed no complication of the surgical area. There was some possible area of pneumonia. Blood cultures were obtained. He was given IV fluids. ?Upon my examination, he was seen on the floors. Patient's wound was examined. We were able to get down to the area of his abdominal incision. There was no evidence of wound dehiscence. There was no signs of any redness erythema purulence. He did complain more about cough and shortness of breath. Upon lung exam he was noted to be markedly wheezy and was constantly coughing.? Hospital day 2 (11/19/2024). Breathing is much easier. Tolerating increased activities. Still feels rather weak and tired. Dry hacky cough much less prominent today than yesterday. Tolerating increased oral intake as well. Exam Narrative: Exam Narrative: I examine him in his hospital room. Appears more comfortable today and in no acute distress. Does not have stridor today. Alert oriented x4. Lungs with scattered rhonchi and less wheezing with end inspiratory rales bibasilarly. No CVA tenderness. Heart tones with regular rhythm, normal S1-S2. Abdomen with active bowel sounds, soft, nontender. Extremities without edema. No focal motor neurologic deficits. Const: Vital Signs, click to edit/add: Vital Signs - 24 hr 11/18/24 16:39 11/18/24 19:21 11/18/24 22:35 Temperature 98.8 F 98.1 F 98.7 F Pulse Rate [Pulse Oximeter] 75 65 77 Respiratory Rate 18 16 22 Blood Pressure [Ri t Arm] 134/84 119/66 130/74 Pulse Oximetry 90 92 94 Oxygen Delivery Me thod Nasal Cannula Nasal Cannula Nasal Cannula Oxygen Flow Rate 2 2 2 11/18/24 22:36 11/18/24 22:36 11/19/24 02:41 Temperature 97.8 F Pulse Rate [Pulse Oximeter] 84 Respiratory Rate 22 22 18 Blood Pressure [Ri ght Arm] 122/79 Pulse Oximetry 94 92 Oxygen Delivery Me thod Nasal Cannula Nasal Cannula Oxygen Flow Rate 2 2 11/19/24 07:00 11/19/24 07:00 11/19/24 07:00 Temperature 98.1 F Pulse Rate [Pulse Oximeter] 86 71 Respiratory Rate 22 20 20 Blood Pressure [Ri ght Arm] 139/79 Pulse Oximetry 97 95 Oxygen Delivery Me thod Nasal Cannula Nasal Cannula Oxygen Flow Rate 2 1 11/19/24 10:02 11/19/24 10:02 11/19/24 11:00 Temperature 98.2 F Pulse Rate [Pulse Oximeter] 71 Respiratory Rate 20 Blood Pressure [Ri ght Arm] 128/76 Pulse Oximetry 94 96 95 Oxygen Delivery Me thod Nasal Cannula Nasal Cannula Nasal Cannula Oxygen Flow Rate 2 1 1 Labs Labs: Laboratory Results - last 24 hr 11/18/24 11/19/24 16:32 06:12 WBC 14.60 H RBC 4.56 Hgb 13.0 L Hct 39.1 MCV 86 MCH 29 MCHC 33 RDW Coeff of Kathya 13.3 Plt Count 195 Neut % (Auto) 89.8 H Lymph % (Auto) 5.1 L [place] % (Auto) 4.7 Eos % (Auto) 0.0 Baso % (Auto) 0.1 Neut # (Auto) 13.10 H Lymph # (Auto) 0.70 L [place] # (Auto) 0.70 Eos # (Auto) 0.00 Baso # (Auto) 0.00 Abs Immat Gran (auto) 0.00 Imm/Tot Granulo (auto) 0.3 Sodium 139 Potassium 4.1 Chloride 111 Carbon Dioxide 21 Anion Gap 7 BUN 14 Creatinine 0.6 Estimated Creat Clear 129.83 Estimated GFR 112 Glucose 137 H Calcium 8.3 L C-Reactive Protein 17.9 H Urine Color Yellow Urine Appearance Clear Urine pH 5.5 Ur Specific [place] 1.015 Urine Protein Negative Urine Glucose (UA) Trace A Urine Ketones Negative Urine Blood Negative Urine Nitrite Negative Urine Bilirubin Negative Urine Urobilinogen 1.0 Ur Leukocyte Esterase Negative Urine RBC 0-2 Urine WBC 0-2 Ur Squamous Epith Cells None Urine Bacteria None
[2024-11-19] MEDS: IPRAT-ALBUT 0.5-2.5 MG/3 ML NEB 1 NEB IH ×2 (16:29→20:31)
[2024-11-19] MEDS: ACETAMINOPHEN 325 MG TABLET 975 MG PO ×2 (16:30→22:17)
[2024-11-19] MEDS: ENOXAPARIN 40 MG/0.4 ML INJ SUBCUT (20:31)
[2024-11-20] MEDS: VANCOMYCIN 1.5 GM/300 ML 1.5 GM/300 ML PIGGYBACK IVPB (01:43)
[2024-11-20] MEDS: IPRAT-ALBUT 0.5-2.5 MG/3 ML NEB 1 NEB IH (01:46)
[2024-11-20 01:50] VITALS: TEMP 37.1
[2024-11-20 03:56] VITALS: BP 141/83; PULSE 70; RESP 20; TEMP 37; O2SAT 91
[2024-11-20] MEDS: PIPERACILLIN/TAZOBACTAM 3.375 GM in 0.9 % SODIUM CHLORIDE Mini-bag 100 ML IVPB ×2 (03:56→10:07)
--- NOTE | 2024-11-20 06:17 | PC.NURSE ---
End of shift: [id number]: A&O. pt having a flat affect overnight making multiple comments about wanting to go home. needing encouragement w/ activity and doing tasks independently. VSS. afebrile. tolerating room air. PRN nebs given. encouraged to use IS, cough and deep breath. saline locked. using call light appropriately.
[2024-11-20 06:45] LABS: HCO3 VBG 23 mmol/L (21-28); Lactate* 1.1 mmol/L (0.5-1.9); PCO2 VBG 31 mmHG (40-50); PO2 VBG 58.1 mmHG (25-47); pH VBG 7.485 (7.32-7.43)
[2024-11-20 06:52] LABS: Hematocrit 40.8 % (37.0-53.0); Hemoglobin* 13.6 gm/dL (13.5-17.5); Mean Corpuscular HGB Conc 33 gm/dL (32-36); Mean Corpuscular Hemoglobin 28 pg (26-34); Mean Corpuscular Volume 85 fL (80-100); Platelet Count* 225 K/uL (140-440); Red Blood Count 4.81 m/uL (4.30-5.90); White Blood Count* 11.67 K/uL (4.50-11.00)
[2024-11-20 06:54] LABS: Slide Review Reflex No
[2024-11-20 07:33] LABS: Chloride* 106 mmol/L (96-114); Sodium* 136 mmol/L (135-149)
[2024-11-20 07:34] LABS: Potassium* 4.1 mmol/L (3.6-5.1)
[2024-11-20 07:37] LABS: Anion Gap 9 mEq/L (7-15); Blood Urea Nitrogen* 15 mg/dL (7-30); Carbon Dioxide* 21 mmol/L (20-32); Creatinine* 0.6 mg/dL (0.5-1.5); Est. Creatinine Clearance* 129.83; Estimated Glomerular Filt Rate 112 ml/min; Glucose* 88 mg/dL (60-115)
[2024-11-20 08:00] VITALS: PULSE 62; RESP 20; O2SAT 93
[2024-11-20 08:05] VITALS: BP 153/95; PULSE 62; RESP 20; TEMP 37.1; O2SAT 93
[2024-11-20] MEDS: OMEPRAZOLE 20 MG CAPSULE DR PO (08:57)
[2024-11-20] MEDS: TAMSULOSIN HCL 0.4 MG CAPSULE PO (08:57)
[2024-11-20] MEDS: ACETAMINOPHEN 325 MG TABLET 975 MG PO (08:58)
[2024-11-20] MEDS: SODIUM CHLORIDE 0.9 % (FLUSH) 10 ML SYRINGE 5 ML IVF (08:59)
[2024-11-20 10:56] VITALS: BP 148/88; PULSE 62; RESP 20; TEMP 36.7; O2SAT 94
[2024-11-20 10:59] VITALS: TEMP 36.7
[2024-11-20] MEDS: 0.9 % SODIUM CHLORIDE 250 ml IV (11:00)
--- NOTE | 2024-11-20 14:15 | PC.NURSE ---
Patient cooperative and compliant with cares. VSS. PRN tylenol was effective for pain. Tolerated ambulation in halls well. SOB improving with activity; lung sounds coarse crackles. Bowel sounds WNL. Iv removed, catheter intact. Patient discharging today.
--- NOTE | 2024-11-20 15:12 | PC.NURSE ---
Patient discharged home via significant other. Patient belongings and discharge form were signed. Education reviewed. D/C'd at 1510.
--- NOTE | 2024-11-20 17:15 | PM.DS1 ---
DS: Providers Provider Date Seen: 11/20/24 Date of admission: 11/18/24 08:47 Primary care physician: Rachel Kenney PA-C Admitting Clinician: Alexander Fuller MD Consults: 11/18/24 03:56 Consult to Physical Therapy [CONS] Routine Comment: Reason(s) for PT Consult:: Balance Assessment Any Restrictions?:: No Restrictions 11/18/24 03:57 Consult to Occupational Therapy [CONS] Routine Comment: Reason(s) for OT Consult:: Evaluate and Treat Any Restrictions?:: No Restrictions Attending Physician on discharge: Justino Bales MD Date of Discharge: 11/20/24 DS: Diagnosis Discharge Diagnosis (1) Fever: Status: Acute Problem details: -afebrile for greater than 24 hours as of 11/19/2024 (2) Postoperative pneumonia: Status: Acute Problem details: -due to recent surgery was placed on piperacillin with tazobactam and vancomycin (3) Hypoxia: Status: Acute Problem details: -need for oxygen supplementation is new for patient as of 11/18/2024 -monitor needs an attempt to wean (4) Sepsis: Status: Acute Problem details: -much improved status post treatment (5) Postextubation stridor: Status: Acute Problem details: -endotracheal intubation 11/16/2024 at time of left inguinal herniorrhaphy -much improved upon admission to the hospital on 11/18/2024, status post treatment with corticosteroids, albuterol nebulization, coughing and clearing of throat DS: Summary Hospital Course Hospital Course: Admission history of present illness: ?59 year old male who is who presents to hospital with complaints of cough and abdominal pain. ?On November 16, 2024, the patient was seen by Dr. Obrien for a symptomatic large left inguinal hernia. Patient was found to have an incarcerated left inguinal hernia. At the time he had had a hernia for a prolonged period of time. However the hernia had increased in size in his left scrotum and he was noticing pain. It was partially able to be reduced. He denied any symptoms of obstruction. Given the patient's exam, the plan was for the patient to undergo an open left inguinal hernia repair. The patient underwent a indirect hernia sac incision which was eventually pushed into the preperitoneal space. Patient underwent a mesh plug placement and eventually did very well and was discharged home. ?Over the past 24 hours, he has been noticing increasing cough shortness of breath and then associated abdominal pain. His abdominal pain was associate with his cough. When he presented to the ER he was noted to have a fever of 103.5. He was noted to have a nonproductive cough with bodyaches. He was passing gas. He denies any nausea or vomiting. He denied any abnormality to the site of his wound. In the ER he was noted to be tachycardic, febrile. He underwent viral testing which was negative. He underwent CT scan of the chest abdomen pelvis which showed no complication of the surgical area. There was some possible area of pneumonia. Blood cultures were obtained. He was given IV fluids. ?Upon my examination, he was seen on the floors. Patient's wound was examined. We were able to get down to the area of his abdominal incision. There was no evidence of wound dehiscence. There was no signs of any redness erythema purulence. He did complain more about cough and shortness of breath. Upon lung exam he was noted to be markedly wheezy and was constantly coughing.? Patient's condition improved substantially with our intervention efforts during the course of hospital stay. Discharge on additional antibiotics for treatment of pneumonia. Follow up as specified. Status at Discharge Functional status at discharge: uses cane/walker Overall status at discharge: patient is progressing back to baseline Time Spent with Patient Time attestation: Total time spent providing and/or coordinating discharge services: Time spent: Greater than 30 minutes Exam Narrative: Exam Narrative: I examine him in his hospital room. Appears more comfortable today and in no acute distress. Not as anxious as previous. Does not have stridor today. Alert oriented x4. Lungs with scattered rhonchi and less wheezing with end inspiratory rales bibasilarly. No CVA tenderness. Heart tones with regular rhythm, normal S1-S2. Abdomen with active bowel sounds, soft, nontender. Extremities without edema. No focal motor neurologic deficits. Ambulates with assistive device. Const: Vital Signs, click to edit/add: Vital Signs - 24 hr 11/19/24 19:36 11/19/24 22:53 11/19/24 22:54 Temperature 98.8 F 99.2 F Pulse Rate [Pulse Oximeter] 86 82 Respiratory Rate 18 20 20 Blood Pressure [Ri ght Arm] 135/80 127/87 Pulse Oximetry 93 94 94 Oxygen Delivery Me thod Room Air Room Air Room Air 11/20/24 01:50 11/20/24 03:56 11/20/24 08:00 Temperature 98.8 F 98.6 F Pulse Rate [Pulse Oximeter] 70 62 Respiratory Rate 20 20 Blood Pressure [Ri ght Arm] 141/83 H Pulse Oximetry 91 Oxygen Delivery Me thod Room Air 11/20/24 08:00 11/20/24 08:05 11/20/24 10:56 Temperature 98.7 F 98.1 F Pulse Rate [Pulse Oximeter] 62 62 Respiratory Rate 20 20 20 Blood Pressure [Ri ght Arm] 153/95 H 148/88 H Pulse Oximetry 93 93 94 Oxygen Delivery Me thod Room Air Room Air Room Air 11/20/24 10:59 Temperature 98.1 F Pulse Rate [Pulse Oximeter] Respiratory Rate Blood Pressure [Ri ght Arm] Pulse Oximetry Oxygen Delivery Me thod DS: Data Data Completed and Pending Labs on day of discharge: Labs from last 24 hours 11/20/24 06:06 WBC 11.67 H RBC 4.81 Hgb 13.6 Hct 40.8 MCV 85 MCH 28 MCHC 33 Plt Count 225 VBG pH 7.485 H VBG pCO2 31 L VBG pO2 58.1 H VBG HCO3 23 Sodium 136 Potassium 4.1 Chloride 106 Carbon Dioxide 21 Anion Gap 9 BUN 15 Creatinine 0.6 Estimated Creat Clear 129.83 Estimated GFR 112 Glucose 88 Lactate 1.1 Calcium 8.0 L C-Reactive Protein 12.0 H Preliminary micro results at discharge 11/17/24 23:50 Blood Culture - Preliminary Blood NO GROWTH AFTER 48 HOURS 11/17/24 23:55 Blood Culture - Preliminary Blood NO GROWTH AFTER [address] Chest/Ab/Pelvis: My impression: Clinically consistent with pneumonia Radiologist's impression: 1. No definite acute findings. 2. Mild subsegmental pulmonary consolidation favored to represent atelectasis. No definite acute infiltrate. 3. Left inguinal hernia and left lower abdominal wall postsurgical changes. No focal drainable fluid collection at this time. Discharge Plan Discharge Disposition: Home, Self-Care Date of Admission: 11/18/24 08:47 Attending Provider on Discharge: Justino Bales Primary Care Provider: Rachel Kenney Condition: Improved Anticipated Discharge Date/Time: 11/20/24 14:00 Discharge Medications: New codeine-guaifenesin 10-100 mg/5 mL Liquid 10 ml PO QID PRN (Reason: Cough) 7 Days Qty: 200 0RF cefdinir 300 mg capsule 300 mg PO BID Qty: 6 0RF Continued tamsulosin 0.4 mg capsule 0.4 mg PO DAILY omeprazole 40 mg capsule,delayed release(DR/EC) 40 mg PO DAILY lisinopril 10 mg tablet 10 mg PO DAILY hydrocodone-acetaminophen 5-325 mg tablet 1 tab PO Q6H PRN (Reason: pain) Qty: 25 0RF Discontinued omeprazole 20 mg capsule,delayed release(DR/EC) 20 mg PO DAILY Discharge Orders: Discharge Order (Routine); Ordered 11/20/24 Ordered By: Justino Bales Patient Education: Guaifenesin (By mouth), Cefdinir (By mouth), Community Acquired Pneumonia (DC) Additional Instructions: 1. Follow-up with your primary rn progressive care in 1-2 weeks 2. Follow- up with your surgeon as planned 3. Return to the clinic or hospital sooner if needed Activity Level: No Restrictions and Other Activity Detail: limitations per your surgeon (hernia repair) and your baseline chronic back pain limitations Discharge Diet: Regular Follow Up Appointments: Rachel Kenney PA-C [Primary Care Provider] - 11/27/24 10:30 am ([facility] for hospital follow-up.) Forms: [place] Info Instructions
== END 2024-11-20 15:13 | disposition home or self-care (01) | DRG 872 ==
LOC: ED 11-18 01:19 → MEDSURG 11-18 02:44
PROVIDERS: Family Medicine; Internal Medicine; Admitting Provider Student in an Organized Health Care Education/Training Program; Emergency Provider Family Medicine; PCP Physician Assistant; Visit Provider Student in an Organized Health Care Education/Training Program
DX: A41.9 Sepsis, unspecified organism (principal); J95.89 Other postprocedural complications and disorders of respiratory system, not elsewhere classified; E78.2 Mixed hyperlipidemia; I10 Essential (primary) hypertension; K21.9 Gastro-esophageal reflux disease without esophagitis; R09.02 Hypoxemia; R50.9 Fever, unspecified; Z98.890 Other specified postprocedural states; R06.1 Stridor
CPT/HCPCS: 36415; 71260; 74177; 80048; 80053; 81001; 82803; 83605; 84484; 85025; 85027; 85379; 86140; 87040; 87631; 94640; 94761; 97116; 97161; 97165; 97530; 97535; 99285; A9270; G0378; J1171; J1650; J1885; J2543; J2919; J3372; J7030; J7050; Q9967